=== PATIENT | female | born 1940 | race Caucasian/White ===

== ENCOUNTER 2024-06-14 12:12 | Inpatient (IN) | payer OTHER ==
[2024-06-14] MEDS ORDERED: ACETAMINOPHEN 500 MG TAB PO PRN (13:01)
--- NOTE | 2024-06-14 13:09 | P.HP ---
Certification for Inpatient Patient admitted to: Inpatient With expected LOS: >2 Midnights Patient will require the following post-hospital care: None Practitioner: I am a practitioner with admitting privileges, knowledge of patient current condition, hospital course, and medical plan of care. Services: Services provided to patient in accordance with Admission requirements found in Title 42 Section 412.3 of the Code of Federal Regulations Patient History Date of Service: 06/14/24 Primary Care Provider: Sandoval Reason for admission: chf exacerbation History of Present Illness: patient of mine who suffers from dementia, chf, htn. She has been swollen since last with tachycardia. Have doubled her Lasix from 40 to 80mg for the past 5 days. She was still swollen this morning with a HR of 108. She does have exertional dyspnea. Decision was made to admit her. She did not like that. However was reasured she can go back to sodalis on discharge. She was willing to come after that. However she can get a bit agitated at times. Have spoken with her with the son at bedside. Home Medications: Apixaban [Eliquis *] 2.5 mg PO BID 06/14/24 Aspirin [Aspirin EC] 81 mg PO DAILY 06/14/24 Carvedilol [Coreg] 3.125 mg PO BID 06/14/24 Fluticasone Propion/Salmeterol [Fluticasone-Salmeterol 250-50] 1 puff IH Q12H 06/14/24 Furosemide 80 mg PO DAILY 06/14/24 Melatonin 10 mg SL BEDTIME 06/14/24 Memantine HCl [Memantine HCl ER] 7 mg PO DAILY 06/14/24 Potassium Chloride 20 mg PO DAILY 06/14/24 Rosuvastatin Calcium 5 mg PO BEDTIME 06/14/24 Sacubitril/Valsartan [Entresto 24 mg-26 mg Tablet] 1 tab PO BID 06/14/24 cloNIDine [Clonidine] 0.1 mg TOP SEECOM 06/14/24 Review of Systems 10-point ROS is otherwise unremarkable Respiratory: SOB with Excertion Cardiovascular: Edema Physical Examination - Physical Exam General: Alert, In no apparent distress HEENT: Atraumatic, PERRLA, Mucous membr. moist/pink, EOMI, Sclerae nonicteric Neck: Supple, 2+ carotid pulse no bruit, No LAD, Without JVD or thyroid abnormality Respiratory: Clear to auscultation bilaterally, Normal air movement Cardiovascular: Regular rate/rhythm, Normal S1 S2, Edema (2+) Gastrointestinal: Normal bowel sounds, No tenderness Musculoskeletal: No tenderness Integumentary: No rashes Neurological: Normal gait, Normal speech, Normal strength at 5/5 x4 extr, Normal tone, Normal affect Lymphatics: No axilla or inguinal lymphadenopathy Assessment and Plan - Problems (Diagnosis) (1) CHF exacerbation Current Visit: Yes Status: Acute Plan: will restart entresto and lasix. Consult to Dr. Lane and check an echocardiogram. will record I's and O's This may be a bit difficult due to the dementia. A be would be convenient. however most likely would cause too much agitation Qualifiers: Heart failure type: unspecified Qualified Code(s): I50.9 - Heart failure, unspecified (2) Dementia Current Visit: Yes Status: Chronic Plan: restart mementia. Keep the patient on fall precautions. Will order PT to evaluate the patient Qualifiers: Dementia type: unspecified type Dementia severity: moderate Dementia behavioral or psychological symptom: with anxiety Qualified Code(s): F03.B4 - Unspecified dementia, moderate, with anxiety (3) Essential (primary) hypertension Current Visit: Yes Status: Chronic Plan: restart entresto and carvedilol. Will adjust as needed Discharge Plan: Home Plan to discharge in: 24 Hours - Advance Directives Does patient have a Living Will: No Does patient have a Durable POA for Healthcare: No - Code Status/Comfort Care Code Status Assessed: Yes Code Status: Do Not Attempt Resuscitat Physician Review: Patient Assessed, Agree with Above Assessment and Plan Critical Care: No Time Spent Managing Pts Care (In Minutes): 75
--- NOTE | 2024-06-14 16:43 | RAD REPORT ---
EXAM DESCRIPTION: Will Pa And Lat (2 Views)06/14/2024 3:28 pm CLINICAL HISTORY: Shortness of breath COMPARISON: None FINDINGS: Lungs are moderately to markedly hyperaerated. Aorta is tortuous/ectatic The lungs appear clear of acute infiltrate. The heart is normal size IMPRESSION: COPD without visualization of an acute abnormality
[2024-06-14] MEDS ORDERED: ENOXAPARIN 40 MG/0.4 ML SQ SCH (17:00)
[2024-06-14] MEDS: carvediloL 3.125 MG TAB PO SCH (17:39)
--- NOTE | 2024-06-14 18:20 | P.CNS ---
Date of Consult: 06/14/24 Primary Care Provider: Sandoval Chief Complaint: chf exacerbation History of Present Illness: Patient with PMH of atrial fibrillation, HTN, Heart failure unknown etiology, presented with worsening bilateral lower extremities edema and worsening SOB, denies chest pain, palpitations, no syncope, patient got advanced dementia. Allergies No Known Allergies Allergy (Verified 06/14/24 14:04) Home medications list reviewed: Yes Home Medications: Apixaban [Eliquis *] 2.5 mg PO BID 06/14/24 Aspirin [Aspirin EC] 81 mg PO DAILY 06/14/24 Fluticasone Propion/Salmeterol [Fluticasone-Salmeterol 250-50] 1 puff IH Q12H 06/14/24 RX: Carvedilol [Coreg] 3.125 mg PO BID 06/14/24 RX: Furosemide 80 mg PO DAILY 06/14/24 RX: Melatonin 10 mg SL BEDTIME 06/14/24 RX: Memantine HCl [Memantine HCl ER] 7 mg PO DAILY 06/14/24 RX: Potassium Chloride 20 mg PO DAILY 06/14/24 RX: Rosuvastatin Calcium 5 mg PO BEDTIME 06/14/24 RX: cloNIDine [Clonidine] 0.1 mg TOP SEECOM 06/14/24 Sacubitril/Valsartan [Entresto 24 mg-26 mg Tablet] 1 tab PO BID 06/14/24 - Past Medical/Surgical History Diabetic: No -: HTN -: CHF -: COPD -: Dementia - Social History Alcohol use: No CD- Drugs: No Caffeine use: No Place of Residence: Home Review of Systems 10-point ROS is otherwise unremarkable Physical Examination Temp Pulse Resp BP Pulse Ox 98.3 F 98 H 20 113/68 94 06/14/24 16:00 06/14/24 16:00 06/14/24 16:00 06/14/24 16:00 06/14/24 16:00 General: Alert, In no apparent distress HEENT: Atraumatic, PERRLA, Mucous membr. moist/pink, EOMI, Sclerae nonicteric Neck: Supple, 2+ carotid pulse no bruit, No LAD, Without JVD or thyroid abnormality Respiratory: Diminished, Crackles/rales Cardiovascular: Edema (+2 to bilateral lower extremities), Irregular heart rate/rhythm Gastrointestinal: Normal bowel sounds, No tenderness Musculoskeletal: No tenderness Integumentary: No rashes Neurological: Normal gait, Normal speech, Normal tone, Normal affect Lymphatics: No axilla or inguinal lymphadenopathy - Problems (1) Atrial fibrillation Current Visit: Yes Status: Acute Plan: Patient is in AF, HR around 100s, Continue Coreg 3.125 mg po BID (Might need to switch to Toprol XL on discharge) Continue Eliquis 2.5 mg po BID (2) CHF exacerbation Current Visit: Yes Status: Acute Plan: Patient got +2 edema to bilateral lower extremities Change Lasix to 40 mg IV TID Hold Entresto for now (resume once more euvolemic) consider adding spirnolactone after diuresis Get Echo monitor input and output and electrolytes Qualifiers: Heart failure type: unspecified Qualified Code(s): I50.9 - Heart failure, unspecified
[2024-06-14] MEDS: MELATONIN SL SCH (20:49)
[2024-06-14] MEDS: FUROSEMIDE 40 MG/4 ML VIAL IV SCH (20:49)
[2024-06-14] MEDS: APIXABAN 2.5 MG TABLET PO SCH (20:49)
[2024-06-14] MEDS: MELATONIN 1 MG SL SCH (20:49)
[2024-06-14] MEDS: PYRIDOXINE HCL SL SCH (20:49)
[2024-06-14] MEDS: ROSUVASTATIN 5 MG TAB PO SCH (20:49)
[2024-06-14] MEDS ORDERED: SACUBITRIL/VALSARTAN 24/26 MG TAB PO SCH (21:00)
[2024-06-14] MEDS ORDERED: carvediloL 3.125 MG TAB PO SCH (21:00)
[2024-06-15 06:13] LABS: Absolute Eosinophils 0.1 K/uL (0-0.5); Absolute Lymphocytes (CBC) 0.6 K/uL (0.7-4.9); Absolute Monocytes 2.5 K/uL (0.1-1.3); Absolute Neutrophil 1.9 K/uL (1.8-8.0); Basophils % 0.8 % (0-1.3); Eosinophils % 1.8 % (0-4.4); Hematocrit 22.8 % (36.0-45.0); Hemoglobin 6.6 g/dL (12.0-15.0); Lymphocytes % 12.1 % (15.3-44.8); MCH 20.6 pg (27.0-35.0); MCHC 28.9 g/dL (32.0-36.0); MCV 71.4 fL (80-100); MPV 8.7 fL (7.6-11.3); Neutrophils % 37.3 % (41.7-73.7); Nucleated Red Blood Cells % 0.2 % (0-0); Platelets 103 thou/uL (152-406); Red Cell Distribution Width 22.7 % (12.1-15.2)
[2024-06-15 06:47] LABS: Albumin/Globulin Ratio 1.1 (1.1-1.8); Anion Gap 5.1 mEq/L (5.0-15.0); Bilirubin Total 0.4 mg/dL (0.2-1.0); Globulin 2.8 g/dL (2.3-3.5); Potassium 3.1 mEq/L (3.5-5.1); Protein, Total 5.8 g/dL (6.4-8.2); Thyroid Stimulating Hormone 3.34 uIU/mL (0.358-3.740)
[2024-06-15 08:03] LABS: Band Neutrophils 4 % (0-1); Differential Total Cells Count 100; Lymphocytes 14 % (15-42); Metamyelocytes 1 % (0-0); Monocytes 39 % (0-10); Segmented Neutrophils 42 % (40-80)
[2024-06-15 08:04] LABS: Anisocytosis 2+; Blood Morphology Comment NOTED (NOT SEEN); Hypochromasia 2+; Platelet Estimate DECR
[2024-06-15] MEDS: POTASSIUM CL SA 10 MEQ TAB PO SCH (08:50)
[2024-06-15] MEDS: ASPIRIN EC 81 MG TAB PO SCH (08:50)
[2024-06-15] MEDS: MEMANTINE HCL 7 MG PO SCH (08:52)
[2024-06-15] MEDS ORDERED: FUROSEMIDE 40 MG/4 ML VIAL IV SCH (09:00)
--- NOTE | 2024-06-15 11:12 | P.PN ---
Subjective Date of Service: 06/15/24 Primary Care Provider: Sandoval Chief Complaint: chf exacerbation Subjective: No new changes, No C/O voiced, Tolerating diet, Ambulating, Improving Review of Systems 10-point ROS is otherwise unremarkable Physical Examination - Vital Signs Temperature: 98.6 F Blood Pressure: 124/57 Pulse: 110 Respirations: 18 Pulse Ox (%): 90 - Physical Exam General: Alert, In no apparent distress HEENT: Atraumatic, PERRLA, EOMI Neck: Supple, JVD not distended Respiratory: Clear to auscultation bilaterally, Normal air movement Cardiovascular: Edema, Irregular heart rate/rhythm Gastrointestinal: Normal bowel sounds, No tenderness Musculoskeletal: No tenderness Integumentary: No rashes Neurological: Normal speech, Normal tone, Normal affect Lymphatics: No axilla or inguinal lymphadenopathy - Studies Laboratory Data (last 24 hrs) 06/15/24 06/15/24 06/15/24 05:59 05:59 05:59 WBC 5.20 Hgb 6.6 L Hct 22.8 L Plt Count 103 L Sodium 141 Potassium 3.1 L BUN 17 Creatinine 0.69 Glucose 111 H Magnesium 2.0 Total Bilirubin 0.4 AST 12 L ALT 24 Alkaline Phosphatase 53 Triglycerides 57 Cholesterol 73 HDL Cholesterol 32 L Cholesterol/HDL Ratio 2.28 Medications List Reviewed: Yes Assessment And Plan - Current Problems (Diagnosis) (1) Atrial fibrillation Current Visit: Yes Status: Acute Plan: Patient is in AF, HR around 100s, start Sotalol 80 mg po BID (EKG after 3rd dose to check QTc) Continue Coreg 3.125 mg po BID (Might need to switch to Toprol XL on discharge) Continue Eliquis 2.5 mg po BID (2) CHF exacerbation Current Visit: Yes Status: Acute Plan: Patient got +2 edema to bilateral lower extremities continue Lasix to 40 mg IV TID Hold Entresto for now (resume once more euvolemic) consider adding spirnolactone after diuresis Get Echo monitor input and output and electrolytes Qualifiers: Heart failure type: unspecified Qualified Code(s): I50.9 - Heart failure, unspecified Physician Review: Patient Assessed, Agree with Above Assessment and Plan
[2024-06-15] MEDS: NA CHLORIDE 0.9% 250 ML ONE (12:33)
--- NOTE | 2024-06-15 13:06 | P.PN ---
Subjective Date of Service: 06/15/24 Primary Care Provider: Sandoval Chief Complaint: chf exacerbation Subjective: New changes (patient is anemic. No reported nausea or vomitting) Review of Systems 10-point ROS is otherwise unremarkable Physical Examination - Vital Signs Temperature: 97.9 F Blood Pressure: 90/60 Pulse: 107 Respirations: 18 Pulse Ox (%): 90 - Physical Exam General: Alert, In no apparent distress HEENT: Atraumatic, PERRLA, Other (pallor), EOMI Neck: Supple, JVD not distended Respiratory: Clear to auscultation bilaterally, Normal air movement Cardiovascular: Regular rate/rhythm, Normal S1 S2 Gastrointestinal: Normal bowel sounds, No tenderness Musculoskeletal: No tenderness Integumentary: No rashes Neurological: Normal speech, Normal tone, Normal affect Lymphatics: No axilla or inguinal lymphadenopathy - Studies Laboratory Data (last 24 hrs) 06/15/24 06/15/24 06/15/24 05:59 05:59 05:59 WBC 5.20 Hgb 6.6 L Hct 22.8 L Plt Count 103 L Sodium 141 Potassium 3.1 L BUN 17 Creatinine 0.69 Glucose 111 H Magnesium 2.0 Total Bilirubin 0.4 AST 12 L ALT 24 Alkaline Phosphatase 53 Triglycerides 57 Cholesterol 73 HDL Cholesterol 32 L Cholesterol/HDL Ratio 2.28 Medications List Reviewed: Yes Assessment And Plan - Current Problems (Diagnosis) (1) CHF exacerbation Current Visit: Yes Status: Acute Plan: will restart entresto and lasix. Consult to Dr. Lane and check an echocardiogram. will record I's and O's This may be a bit difficult due to the dementia. A be would be convenient. however most likely would cause too much agitation 06/[address] Lane notes. Will decrease lasix to bid. She most likely is third spacing due to anemia. blood transfusion will help with that Qualifiers: Heart failure type: unspecified Qualified Code(s): I50.9 - Heart failure, unspecified (2) Dementia Current Visit: Yes Status: Chronic Plan: restart mementia. Keep the patient on fall precautions. Will order PT to evaluate the patient Qualifiers: Dementia type: unspecified type Dementia severity: moderate Dementia behavioral or psychological symptom: with anxiety Qualified Code(s): F03.B4 - Unspecified dementia, moderate, with anxiety (3) Essential (primary) hypertension Current Visit: Yes Status: Chronic Plan: restart entresto and carvedilol. Will adjust as needed (4) Anemia Current Visit: Yes Status: Acute Plan: will order reticulocyte and iron studies. Will transfuse 1 unit. Will have her follow up with Dr. Yuen as an outpatient. Start the patient on protonix. Would like to stop the eliquis. However Dr. Lane is correct in using it to treat atrial fib. A stroke is worse than blood loss. We can replace blood and not brain tissue Qualifiers: Anemia type: iron deficiency Iron deficiency anemia type: chronic blood loss Qualified Code(s): D50.0 - Iron deficiency anemia secondary to blood loss (chronic) (5) Atrial fibrillation Current Visit: Yes Status: Acute Plan: normal thyroid. Will continue carvedilol Will consider increasing it. May improve if we correct the anemia Qualifiers: Atrial fibrillation type: unspecified chronic Qualified Code(s): I48.20 - Chronic atrial fibrillation, unspecified; I48.2 - Chronic atrial fibrillation Discharge Plan: Home - Code Status/Comfort Care Code Status Assessed: No Physician Review: Patient Assessed, Agree with Above Assessment and Plan Critical Care: No Time Spent Managing PTS Care (In Minutes): 35
[2024-06-15 13:35] LABS: Ferritin 7.2 ng/mL (8-252)
[2024-06-15 13:36] LABS: Percent Reticulocyte Count 2.57 % (0.4-2.05); RBC Red Blood Cell Count 3.35 M/uL (3.86-4.86)
--- NOTE | 2024-06-15 14:04 | ECHO ---
HEIGHT: 5 ft 3 in WEIGHT: 127 lb 0 oz DATE OF STUDY: 06/15/[address]: Willem Nick MD 2-DIMENSIONAL: YES M.MODE: YES DOPPLER: YES COLOR FLOW: YES TDS: PORTABLE: YES DEFINITY: BUBBLE STUDY: DIAGNOSIS: CONGESTIVE HEART FAILURE CARDIAC HISTORY: CATHERIZATION: NO SURGERY: NO PROSTHETIC VALVE: NO PACEMAKER: NO MEASUREMENTS (cm) DIASTOLIC (NORMALS) SYSTOLIC (NORMALS) IVSd 0.9 (0.6-1.2) LA Diam 3.0 (1.9-4.0) LVEF 60-65% LVIDd 4.0 (3.5-5.7) LVIDs 2.9 (2.0-3.5) %FS 27% LVPWd 1.0 (0.6-1.2) Ao Diam 2.6 (2.0-3.7) 2 DIMENSIONAL ASSESSMENT: RIGHT ATRIUM: ENLARGED LEFT ATRIUM: MODERATELY DILATED RIGHT VENTRICLE: NORMAL LEFT VENTRICLE: NORMAL TRICUSPID VALVE: MILD TRICUSPID REGURGITATION MITRAL VALVE: MILD MITRAL REGURGITATION PULMONIC VALVE: NORMAL AORTIC VALVE: MILD AORTIC REGURGITATION PERICARDIAL EFFUSION: NONE AORTIC ROOT: NORMAL LEFT VENTRICULAR WALL MOTION: NORMAL DOPPLER/COLOR FLOW: DIASTOLIC DYSFUNCTION COMMENTS: 1. NORMAL LEFT VENTRICULAR SYSTOLIC FUNCTION, EJECTION FRACTION 60-65%, NORMAL WALL MOTION 2. DIASTOLIC DYSFUNCTION 3. SEVERELY ENLARGED LEFT AND RIGHT ATRIUM 4. MILDLY ELEVATED FILLING PRESSURE (RIGHT ATRIUM 5-10 mmHg) 5. MODERATE PULMONARY HYPERTENSION (RIGHT VENTRICULAR SYSTOLIC PRESSURE 50-55 mmHg) 6. MILD AORTIC REGURGITATION/ MILD MITRAL REGURGITATION TECHNOLOGIST: CARMINE WASHINGTON
[2024-06-15] MEDS: MORPHINE 2 MG/ML SYR IM PRN (15:20)
[2024-06-15] MEDS: FUROSEMIDE 40 MG/4 ML VIAL IV SCH (16:17)
[2024-06-15] MEDS: HYDROMORPHONE HCL 0.5 MG/0.5 ML INJ IV PRN (16:46)
[2024-06-15] MEDS ORDERED: ENOXAPARIN 40 MG/0.4 ML SQ SCH (17:00)
[2024-06-15 17:26] LABS: Hematocrit 27.9 % (36.0-45.0); Hemoglobin 8.5 g/dL (12.0-15.0)
[2024-06-15 17:34] VITALS: BMI 21.3
[2024-06-15] MEDS: ONDANSETRON 4 MG/2 ML VIAL IV PRN (20:55)
[2024-06-15] MEDS: APIXABAN 2.5 MG TABLET PO SCH (22:27)
[2024-06-16 07:07] LABS: Absolute Lymphocytes (CBC) 0.6 K/uL (0.7-4.9); Absolute Monocytes 2.2 K/uL (0.1-1.3); Absolute Neutrophil 2.8 K/uL (1.8-8.0); Basophils % 0.5 % (0-1.3); Eosinophils % 0.5 % (0-4.4); Hematocrit 26.2 % (36.0-45.0); Hemoglobin 7.9 g/dL (12.0-15.0); Lymphocytes % 11.2 % (15.3-44.8); MCHC 30.1 g/dL (32.0-36.0); MCV 72.9 fL (80-100); MPV 8.6 fL (7.6-11.3); Monocytes % 38.3 % (3.3-12.3); Neutrophils % 49.5 % (41.7-73.7); Nucleated Red Blood Cells % 0.3 % (0-0); Platelets 86 thou/uL (152-406); RBC Red Blood Cell Count 3.59 M/uL (3.86-4.86); Red Cell Distribution Width 23.5 % (12.1-15.2)
[2024-06-16 07:29] LABS: Albumin/Globulin Ratio 1.1 (1.1-1.8); Anion Gap 4.3 mEq/L (5.0-15.0); Bilirubin Total 0.6 mg/dL (0.2-1.0); Globulin 2.7 g/dL (2.3-3.5); Potassium 3.3 mEq/L (3.5-5.1); Protein, Total 5.7 g/dL (6.4-8.2)
[2024-06-16 08:08] LABS: Differential Total Cells Count 100; Lymphocytes 20 % (15-42); Monocytes 26 % (0-10); Platelet Estimate DECR; Platelets, Giant PRESENT; Segmented Neutrophils 54 % (40-80)
[2024-06-16 08:09] LABS: Anisocytosis 2+; Blood Morphology Comment NOTED (NOT SEEN)
[2024-06-16] MEDS: FERROUS GLUCONATE 324 MG TAB PO SCH (08:32)
[2024-06-16 11:07] VITALS: BP 109/70; TEMP 99.3
[2024-06-16 12:05] VITALS: O2SAT 95
--- NOTE | 2024-06-16 14:11 | P.DS ---
Admission Date: 06/14/24 Discharge Date: 06/16/24 Primary Care Provider: Sandoval Disposition: ROUTINE DISCHARGE Discharge Condition: GOOD Reason for Admission: chf exacerbation - Problems (1) CHF exacerbation Current Visit: Yes Status: Acute Qualifiers: Heart failure type: unspecified Qualified Code(s): I50.9 - Heart failure, unspecified (2) Dementia Current Visit: Yes Status: Chronic Qualifiers: Dementia type: unspecified type Dementia severity: moderate Dementia behavioral or psychological symptom: with anxiety Qualified Code(s): F03.B4 - Unspecified dementia, moderate, with anxiety (3) Essential (primary) hypertension Current Visit: Yes Status: Chronic (4) Anemia Current Visit: Yes Status: Acute Qualifiers: Anemia type: iron deficiency Iron deficiency anemia type: chronic blood loss Qualified Code(s): D50.0 - Iron deficiency anemia secondary to blood loss (chronic) (5) Atrial fibrillation Current Visit: Yes Status: Acute Qualifiers: Atrial fibrillation type: unspecified chronic Qualified Code(s): I48.20 - Chronic atrial fibrillation, unspecified; I48.2 - Chronic atrial fibrillation Brief History of Present Illness: patient of [employer] who suffers from dementia, chf, htn. She has been swollen since last with tachycardia. Have doubled her Lasix from 40 to 80mg for the past 5 days. She was still swollen this morning with a HR of 108. She does have exertional dyspnea. Decision was made to admit her. She did not like that. However was reasured she can go back to sodalis on discharge. She was willing to come after that. However she can get a bit agitated at times. Have spoken with her with the son at bedside. Hospital Course: Patient was admitted for chf exacerbation. she failed outpatient therapy of doubling her lasix to 80mg. She was found to be anemic with a hb of 6.6. She was transfused 1 unit prbc. The hb stayed stable. She was seen by Dr Lane. Echo showed diastolic heart failure with pulmonary htn. She also had potassium. Was started on potassium replacement. She was also in atrial fib. Will discharge her on protonix, ferrous sulfate, eliquis for stroke prevention. Will also start her on potassium chloride 20meq po. Discussed an outpatient follow up with Dr. Yuen. However the patients son refuses. States that he feels that she would not survive an EGD. Feels she is stage 4 dementia. Though this is not quite true, it is his right to refuse treatment Vital Signs/Physical Exam: Temp Pulse Resp BP Pulse Ox 99.3 F 112 H 20 109/70 94 06/16/24 08:00 06/16/24 08:00 06/16/24 08:00 06/16/24 08:00 06/16/24 08:00 General: Alert, In no apparent distress HEENT: Atraumatic, PERRLA, EOMI Neck: Supple, JVD not distended Respiratory: Clear to auscultation bilaterally, Normal air movement Cardiovascular: Regular rate/rhythm, Normal S1 S2 Gastrointestinal: Normal bowel sounds, No tenderness Musculoskeletal: No tenderness Integumentary: No rashes Neurological: Normal speech, Normal tone, Normal affect Lymphatics: No axilla or inguinal lymphadenopathy Laboratory Data at Discharge: WBC 5.70 thou/uL (4.3-10.9) 06/16/24 06:49 Hgb 7.9 g/dL (12.0-15.0) L 06/16/24 06:49 Hct 27.6 % (36.0-45.0) L 06/16/24 12:05 Plt Count 86 thou/uL (152-406) L 06/16/24 06:49 Sodium 138 mEq/L (136-145) 06/16/24 06:49 Potassium 3.3 mEq/L (3.5-5.1) L 06/16/24 06:49 BUN 25 mg/dL (7-18) H 06/16/24 06:49 Creatinine 1.10 mg/dL (0.55-1.02) H 06/16/24 06:49 Glucose 98 mg/dL (74-106) 06/16/24 06:49 Magnesium 2.0 mg/dL (1.6-2.4) 06/15/24 05:59 Total Bilirubin 0.6 mg/dL (0.2-1.0) 06/16/24 06:49 AST 28 U/L (15-37) 06/16/24 06:49 ALT 30 U/L (13-56) 06/16/24 06:49 Alkaline Phosphatase 52 U/L (45-117) 06/16/24 06:49 Triglycerides 57 mg/dL (<150) 06/15/24 05:59 Cholesterol 73 mg/dL (<200) 06/15/24 05:59 HDL Cholesterol 32 mg/dL (40-60) L 06/15/24 05:59 Cholesterol/HDL Ratio 2.28 06/15/24 05:59 Home Medications: Apixaban [Eliquis *] 2.5 mg PO BID 06/14/24 Aspirin [Aspirin EC] 81 mg PO DAILY 06/14/24 Carvedilol [Coreg] 3.125 mg PO BID 06/14/24 Fluticasone Propion/Salmeterol [Fluticasone-Salmeterol 250-50] 1 puff IH Q12H 06/14/24 Furosemide 80 mg PO DAILY 06/14/24 Melatonin 10 mg SL BEDTIME 06/14/24 Memantine HCl [Memantine HCl ER] 7 mg PO DAILY 06/14/24 Potassium Chloride 20 mg PO DAILY 06/14/24 Rosuvastatin Calcium 5 mg PO BEDTIME 06/14/24 Sacubitril/Valsartan [Entresto 24 mg-26 mg Tablet] 1 tab PO BID 06/14/24 cloNIDine [Clonidine] 0.1 mg TOP SEECOM 06/14/24 Ferrous Gluconate 324 mg PO DAILY 90 Days #90 tab 06/16/24 Pantoprazole Sodium [Protonix] 40 mg PO DAILY 90 Days #90 tab 06/16/24 Potassium Chloride 20 meq PO DAILY 90 Days #90 tab 06/16/24 New Medications: Ferrous Gluconate 324 mg PO DAILY 90 Days #90 tab Potassium Chloride 20 meq PO DAILY 90 Days #90 tab Pantoprazole Sodium [Protonix] 40 mg PO DAILY 90 Days #90 tab Diet: Regular Activity: Ad dino Followup: Willem Nick MD [Primary Care Provider] - Physician Review: Patient Assessed, Agree with Above Assessment and Plan Time spent managing pt's care (in minutes): 45
== END 2024-06-16 14:44 | disposition home or self-care (01) | DRG 291 ==
LOC: 2ND 12:12
PROVIDERS: ADMIT Internal Medicine; ATTEND Internal Medicine
PROC: 30233N1 Transfusion of Nonautologous Red Blood Cells into Peripheral Vein, Percutaneous Approach (ICD-10-PCS; principal; 2024-06-15)
DX: I11.0 Hypertensive heart disease with heart failure (principal); I50.33 Acute on chronic diastolic (congestive) heart failure; F03.B11 Unspecified dementia, moderate, with agitation; F03.B4 Unspecified dementia, moderate, with anxiety; I48.20 Chronic atrial fibrillation, unspecified; I27.20 Pulmonary hypertension, unspecified; J44.9 Chronic obstructive pulmonary disease, unspecified; D50.0 Iron deficiency anemia secondary to blood loss (chronic); Z79.82 Long term (current) use of aspirin; Z79.01 Long term (current) use of anticoagulants; Z79.899 Other long term (current) drug therapy
CPT/HCPCS: 36415; 36430; 71046; 80053; 80061; 82728; 82947; 83540; 83735; 84443; 84466; 85014; 85018; 85025; 85044; 86850; 86900; 86901; 86920; 93306; J1170; J1940; J2270; J2405; J7050; P9016

== ENCOUNTER 2024-07-04 01:37 | Emergency (ER) | payer OTHER ==
[2024-07-04 02:54] LABS: Absolute Eosinophils 0.2 K/uL (0-0.5); Absolute Lymphocytes (CBC) 0.6 K/uL (0.7-4.9); Absolute Monocytes 2.7 K/uL (0.1-1.3); Absolute Neutrophil 3.2 K/uL (1.8-8.0); Basophils % 0.5 % (0-1.3); Eosinophils % 3.1 % (0-4.4); Hemoglobin 8.8 g/dL (12.0-15.0); MCH 23.8 pg (27.0-35.0); MCHC 29.3 g/dL (32.0-36.0); MCV 81.2 fL (80-100); MPV 8.6 fL (7.6-11.3); Monocytes % 39.4 % (3.3-12.3); Nucleated Red Blood Cells % 0.2 % (0-0); Platelets 299 thou/uL (152-406); Red Cell Distribution Width 31.2 % (12.1-15.2)
[2024-07-04 03:17] LABS: Albumin 3.1 g/dL (3.4-5.0); Anion Gap 3.3 mEq/L (5.0-15.0); Bilirubin Direct 0.2 mg/dL (0-0.2); Bilirubin Indirect, Calculated 0.2 mg/dL (0.2-0.8); Bilirubin Total 0.4 mg/dL (0.2-1.0); Globulin 3.1 g/dL (2.3-3.5); Magnesium 2.3 mg/dL (1.6-2.4); Potassium 4.3 mEq/L (3.5-5.1); Protein, Total 6.2 g/dL (6.4-8.2); Troponin High Sensitivity 11.9 pg/mL (<58.9)
[2024-07-04 03:39] LABS: Band Neutrophils 13 % (0-1); Differential Total Cells Count 100; Eosinophils 5 % (0-3); Lymphocytes 12 % (15-42); Monocytes 19 % (0-10); Segmented Neutrophils 50 % (40-80)
[2024-07-04 03:40] LABS: Anisocytosis 2+; Blood Morphology Comment NOTED (NOT SEEN); Platelet Estimate ADEQ
[2024-07-04 03:41] LABS: Hypochromasia 1+; Microcytosis 2+
--- NOTE | 2024-07-04 03:50 | ER ---
Nurse's Notes [facility] Name: Odalys Macario Age: 83 yrs Sex: Female : 1940 Arrival Date: 07/04/2024 Time: 01:37 Bed 2 Private MD: Diagnosis: Mechanical fall;Right hip pain Presentation: 07/04 01:44 Chief complaint: Patient states: fall from wheelchair to ground. pain to right hip. lg3 denies LOC. Pain 05/13. Coronavirus screen: Client denies travel out of the [place] in the last 14 days. At this time, the client does not indicate any symptoms associated with coronavirus-19. Ebola Screen: No symptoms or risks identified at this time. Initial Sepsis Screen: Does the patient meet any 2 criteria? No. Patient's initial sepsis screen is negative. Does the patient have a suspected source of infection? No. Patient's initial sepsis screen is negative. Risk Assessment: Do you want to hurt yourself or someone else? Patient reports no desire to harm self or others. Onset of symptoms was July 04, 2024. 01:44 Method Of Arrival: EMS: [facility] lg3 01:44 Acuity: CARISSA 3 lg3 Triage Assessment: 01:46 General: Appears in no apparent distress. uncomfortable, Behavior is calm, cooperative. lg3 Pain: Complains of pain in right hip Pain does not radiate. Pain currently is 8 out of 10 on a pain scale. EENT: No deficits noted. No signs and/or symptoms were reported regarding the EENT system. Neuro: No deficits noted. Small Agitation-Sedation Scale (RASS): 0 - Alert and Calm Level of Consciousness is awake, alert, obeys commands, Oriented to person, place, time, situation. Cardiovascular: No deficits noted. Denies chest pain, shortness of breath, Capillary refill is > 3 seconds is sluggish Clubbing of nail beds is absent JVD is absent Patient's skin is warm and dry. Respiratory: No deficits noted. Airway is patent Respiratory effort is even, unlabored, Respiratory pattern is regular, symmetrical. GI: No deficits noted. No signs and/or symptoms were reported involving the gastrointestinal system. : No deficits noted. No signs and/or symptoms were reported regarding the genitourinary system. Derm: No deficits noted. Skin is intact, is thin, Skin is dry, Skin is normal, Skin temperature is warm. Musculoskeletal: Circulation, motion, and sensation intact. Range of motion: limited in right hip Reports pain in right hip. Historical: - Allergies: 01:46 No Known Allergies; lg3 - Home Meds: 01:46 aspirin 81 mg Oral capsule 1 cap daily [Active]; carvedilol 3.125 mg oral tablet 1 tab lg3 2 times per day [Active]; clonidine HCl 0.1 mg Oral tablet 1 tab once [Active]; Eliquis 2.5 mg oral tablet 1 tab 2 times per day [Active]; Entresto 24-26 mg oral tablet 1 tab 2 times per day [Active]; FeroSul 325 mg (65 mg iron) oral tablet 1 tab daily [Active]; fluticasone propion-salmeterol 250-50 mcg/dose inhalation Blister, With Inhalation Device 2 times per day [Active]; furosemide 40 mg Oral tablet 1 tab daily [Active]; melatonin 10 mg Oral tablet once daily at bedtime [Active]; memantine 7 mg oral Capsule, Sprinkle Ext Rel 24hr Dose Pack 1 cap daily [Active]; pantoprazole 40 mg oral tablet, delayed release (enteric coated) 1 tab daily [Active]; potassium chloride 20 mEq Oral Packet 2 tab daily [Active]; rosuvastatin 5 mg oral tablet 1 tab daily [Active]; sertraline 25 mg oral tablet 1 tab daily [Active]; - PSHx: 01:46 Total abdominal hysterectomy; lg3 - Immunization history:: Adult Immunizations up to date. - Infectious Disease History:: Denies. - Social history:: Smoking status: Patient denies any tobacco usage or history of. - Family history:: not pertinent. Screenin:53 [facility] ED Fall Risk Assessment (Adult) History of falling in the last 3 months, lg3 including since admission Yes- single mechanical fall (1 pt) Confusion or Disorientation No (0 pts) Intoxicated or Sedated No (0 pts) Impaired Gait Yes (1 pt) Mobility Assist Device Used Yes (1 pt) Altered Elimination No (0 pt) Score/Fall Risk Level 3 or more points = High Risk Oriented to surroundings, Maintained a safe environment, Educated pt \T\ family on fall prevention, incl call for assistance when getting out of bed, Assessed \T\ reinforced patient's understanding of fall precautions, Provided non-skid footwear. Abuse screen: Denies threats or abuse. Denies injuries from another. Nutritional screening: No deficits noted. Tuberculosis screening: No symptoms or risk factors identified. Assessment: 01:53 General: see triage assessment. lg3 03:51 Reassessment: Patient appears in no apparent distress at this time. No changes from lg3 previously documented assessment. Patient and/or family updated on plan of care and expected duration. Pain level reassessed. Patient is alert, oriented x 3, equal unlabored respirations, skin warm/dry/pink. Vital Signs: 01:44 BP 136 / 88; Pulse 74; Resp 18 S; Temp 98.1(O); Pulse Ox 91% on 3 lpm NC; Weight 65.32 lg3 kg (M); Height 5 ft. 2 in. (R); Pain 8/10; 03:51 BP 137 / 90; Pulse 79; Resp 17 S; Pulse Ox 94% on R/A; lg3 01:44 Body Mass Index 26.34 (65.32 kg, 157.48 cm) lg3 01:44 Pain Scale: Adult lg3 ED Course: 01:44 Patient arrived in ED. vc1 01:44 Abelino Willingham MD is Attending Physician. rt 01:44 Ada Washington, BRYCE is Primary Nurse. lg3 01:46 Triage completed. lg3 01:46 Arm band placed on right wrist. lg3 01:53 Patient has correct armband on for positive identification. Placed in gown. Bed in low lg3 position. Call light in reach. Side rails up X 1. Client placed on continuous cardiac and pulse oximetry monitoring. NIBP monitoring applied. color television console monitor on. Door closed. Noise minimized. Warm blanket given. Pillow given. 01:53 Oxygen administration via nasal cannula \T\ 3L/min. lg3 02:32 Inserted saline lock: 22 gauge in left wrist, using aseptic technique. lg3 02:32 Inserted saline lock: 20 gauge in right forearm, using aseptic technique. Blood lg3 collected. 02:33 Basic Metabolic Panel Sent. lg3 02:33 CBC with Diff Sent. lg3 02:33 LFT's Sent. lg3 02:33 Magnesium Sent. lg3 02:33 NT PRO-BNP Sent. lg3 02:33 Troponin HS Sent. lg3 02:59 XRAY Chest (1 view) In Process Unspecified. EDMS 02:59 Hip Right 2 View XRAY In Process Unspecified. EDMS 03:58 No provider procedures requiring assistance completed. IV discontinued, intact, lg3 bleeding controlled, No redness/swelling at site. Pressure dressing applied. Administered Medications: No medications were administered Medication: 03:58 VIS not applicable for this client. lg3 Outcome: 03:50 Discharge ordered by MD. rt 03:58 Discharged to skilled nursing. [facility] to [facility] 03:58 Condition: stable 03:58 Discharge instructions given to patient, Instructed on discharge instructions, follow up and referral plans. Demonstrated understanding of instructions, follow-up care, 03:58 Patient left the ED. lg3 Signatures: Dispatcher [employer] Ada Su, RN RN lg3 Madison Escalera RN RN vc1 Abelino Willingham MD MD rt Corrections: (The following items were deleted from the chart) 02:18 01:44 BP 136 / 88; Pulse 74bpm; Resp 18bpm; Spontaneous; Pulse Ox 91% 3 lpm Nasal lg3 Cannula; Temp 98.1F Oral; 65.32 kg Measured; Height 5 ft. 2 in. Reported; BMI: 26.3; Pain 8/10, Adult; lg3
--- NOTE | 2024-07-04 03:50 | EDPHYS ---
Physician Documentation [facility] Name: Odalys Macario Age: 83 yrs Sex: Female : 1940 Arrival Date: 07/04/2024 Time: 01:37 Bed 2 Private MD: ED Physician Abelino Willingham HPI: 07/04 02:10 This 83 yrs old Female presents to ER via EMS with complaints of fall. rt 02:10 Patient presents to the ED with mechanical fall from wheelchair to the ground. Patient rt states that she became dizzy, lose consciousness, states that she did hit her head, states that she was on the ground for a brief period of time. Reports pain to her right hip but denies other injury, acute complaints, symptoms are moderate in severity, no other aggravating or elevating factors.. Historical: - Allergies: 01:46 No Known Allergies; lg3 - Home Meds: 01:46 aspirin 81 mg Oral capsule 1 cap daily [Active]; carvedilol 3.125 mg oral tablet 1 tab lg3 2 times per day [Active]; clonidine HCl 0.1 mg Oral tablet 1 tab once [Active]; Eliquis 2.5 mg oral tablet 1 tab 2 times per day [Active]; Entresto 24-26 mg oral tablet 1 tab 2 times per day [Active]; FeroSul 325 mg (65 mg iron) oral tablet 1 tab daily [Active]; fluticasone propion-salmeterol 250-50 mcg/dose inhalation Blister, With Inhalation Device 2 times per day [Active]; furosemide 40 mg Oral tablet 1 tab daily [Active]; melatonin 10 mg Oral tablet once daily at bedtime [Active]; memantine 7 mg oral Capsule, Sprinkle Ext Rel 24hr Dose Pack 1 cap daily [Active]; pantoprazole 40 mg oral tablet, delayed release (enteric coated) 1 tab daily [Active]; potassium chloride 20 mEq Oral Packet 2 tab daily [Active]; rosuvastatin 5 mg oral tablet 1 tab daily [Active]; sertraline 25 mg oral tablet 1 tab daily [Active]; - PSHx: 01:46 Total abdominal hysterectomy; lg3 - Immunization history:: Adult Immunizations up to date. - Infectious Disease History:: Denies. - Social history:: Smoking status: Patient denies any tobacco usage or history of. - Family history:: not pertinent. ROS: 02:10 Constitutional: Negative for fever, chills, and weight loss, Cardiovascular: Negative rt for chest pain, palpitations, and edema, Respiratory: Negative for shortness of breath, cough, wheezing, and pleuritic chest pain, Abdomen/GI: Negative for abdominal pain, nausea, vomiting, diarrhea, and constipation, Skin: Negative for injury, rash, and discoloration, 02:10 MS/extremity: Positive for pain, Negative for deformity, Exam: 02:10 Constitutional: This is a well developed, well nourished patient who is awake, alert, rt and in no acute distress. Head/Face: Normocephalic, atraumatic. Chest/axilla: Normal chest wall appearance and motion. Nontender with no deformity. No lesions are appreciated. Cardiovascular: Regular rate and rhythm with a normal S1 and S2. No gallops, murmurs, or rubs. Normal PMI, no JVD. No pulse deficits. Respiratory: Lungs have equal breath sounds bilaterally, clear to auscultation and percussion. No rales, rhonchi or wheezes noted. No increased work of breathing, no retractions or nasal flaring. Abdomen/GI: Soft, non-tender, with normal bowel sounds. No distension or tympany. No guarding or rebound. No evidence of tenderness throughout. Skin: Warm, dry with normal turgor. Normal color with no rashes, no lesions, and no evidence of cellulitis. 02:10 ECG was reviewed by the Attending Physician. 02:10 Musculoskeletal/extremity: Mild tenderness laterally over right hip, no deformities noted, no tenderness overlying the proximal femur. Vital Signs: 01:44 BP 136 / 88; Pulse 74; Resp 18 S; Temp 98.1(O); Pulse Ox 91% on 3 lpm NC; Weight 65.32 lg3 kg (M); Height 5 ft. 2 in. (R); Pain 8/10; 03:51 BP 137 / 90; Pulse 79; Resp 17 S; Pulse Ox 94% on R/A; lg3 01:44 Body Mass Index 26.34 (65.32 kg, 157.48 cm) lg3 01:44 Pain Scale: Adult lg3 MDM: 01:44 Patient medically screened. rt 04:14 Differential Diagnosis Fall, contusion, fracture. Data reviewed: vital signs, nurses rt notes, lab test result(s). Consideration of Admission/Observation Escalation of care including admission/observation considered. Patient without pulmonary edema, chronic CHF, no fractures. States that she feels much better in the emergency department, wishes to go home. Patient to follow-up as an outpatient.. Independent interpretation of the following test(s) in the Emergency Department X-Ray: My interpretation is No hip fracture, pulmonary edema seen on interpretation of x-ray images. Test considered but Not performed: CT: Denies head trauma, CT scan of the head is not indicated. Care significantly affected by the following chronic conditions: Congestive Heart Failure. Counseling: I had a detailed discussion with the patient and/or guardian regarding the historical points, exam findings, and any diagnostic results supporting the discharge/admit diagnosis, lab results, radiology results, the need for outpatient follow up, to return to the emergency department if symptoms worsen or persist or if there are any questions or concerns that arise at home. Response to treatment: the patient's symptoms have markedly improved after treatment. 07/04 01:48 Order name: Basic Metabolic Panel; Complete Time: 03:41 rt 07/04 01:48 Order name: CBC with Diff; Complete Time: 03:41 rt 07/04 01:48 Order name: LFT's; Complete Time: 03:41 rt 07/04 01:48 Order name: Magnesium; Complete Time: 03:41 rt 07/04 01:48 Order name: NT PRO-BNP; Complete Time: 03:41 rt 07/04 01:48 Order name: Troponin HS; Complete Time: 03:41 rt 07/04 03:00 Order name: Manual Differential; Complete Time: 03:41 EDMS 07/04 01:48 Order name: XRAY Chest (1 view) rt 07/04 01:48 Order name: Hip Right 2 View XRAY rt 07/04 01:48 Order name: Cardiac monitoring; Complete Time: 02:33 rt 07/04 01:48 Order name: EKG - Nurse/Tech; Complete Time: 02:33 rt 07/04 01:48 Order name: IV Saline Lock; Complete Time: 02:33 rt 07/04 01:48 Order name: Labs collected and sent; Complete Time: 02:33 rt 07/04 01:48 Order name: O2 Per Protocol; Complete Time: 02:33 rt 07/04 01:48 Order name: O2 Sat Monitoring; Complete Time: :33 rt EC:10 Rate is 107 beats/min. Rhythm is irregularly irregular, A fib with Occasional PVCs. QRS rt [place] is Normal. QRS interval is normal. QT interval is normal. No Q waves. No ST changes noted. Administered Medications: No medications were administered Disposition Summary: 07/04/24 03:50 Discharge Ordered Notes: Location: Home rt Problem: new rt Symptoms: have improved rt Condition: Stable rt Diagnosis - Mechanical fall rt - Right hip pain rt Followup: rt - With: Private Physician - When: 2 - 3 days - Reason: Discharge Instructions: - Discharge Summary Sheet rt - Fall Prevention in the Home, Adult rt Forms: - Medication Reconciliation Form rt - Antibiotic Education rt - Prescription Opioid Use rt - Patient Portal Instructions rt - Leadership Thank You Letter rt Signatures: Dispatcher [employer] EDAda Burrell RN RN lg3 Abelino Willingham MD MD rt Corrections: (The following items were deleted from the chart) 01:49 01:49 Chest Single View+RAD.RAD.[email or web address] ordered. EDMS EDMS 01:49 01:49 Hip Right 2 View+RAD.[email or web address].[email or web address] ordered. EDMS EDMS
[2024-07-04 04:08] VITALS: TEMP 98.1
[2024-07-04 04:15] VITALS: BP 137/90; O2SAT 94
--- NOTE | 2024-07-04 05:44 | RAD REPORT ---
EXAM: XR Chest, 1 View CLINICAL HISTORY: The patient is 83 years old and is Female; Fall. TECHNIQUE: Single view of the chest. COMPARISON: No relevant prior studies available. FINDINGS: Lungs: No pulmonary vascular congestion or consolidation. Pleural space: Unremarkable. No pneumothorax. Heart: The cardiac silhouette is enlarged versus artifact of AP technique. Mediastinum: Unremarkable. Bones/joints: Scoliosis. No acute rib fracture visualized. Upper abdomen: No free air in the visualized upper abdomen. IMPRESSION: No acute cardiopulmonary process identified. Electronically signed by: Winifred Bowers MD 07/04/2024 05:13 AM CDT RP ND Due to temporary technical issues with the PACS/MaxTraffic reporting system, reports are being maritza d by the in-house radiologist without review as a courtesy to ensure prompt reporting the interpreting radiologist is fully responsible for the content of the report. Transcribed Date/Time: 07/04/2024 5:43 AM
--- NOTE | 2024-07-04 05:44 | RAD REPORT ---
PROCEDURE: XR Right Hip With Pelvis When Performed, 1 View CLINICAL INDICATION: The patient is 83 years old and is Female; PAIN Bed Name: 2 TECHNIQUE: Frontal view of the right hip with pelvis when performed. COMPARISON: No relevant prior studies available. FINDINGS: BONES/JOINTS: Degenerative changes of the right hip and visualized left hip. No acute fracture. No subluxation or dislocation. No periosteal reaction. No suspicious lytic or blastic bone lesion. SOFT TISSUES: Grossly unremarkable. VASCULATURE: Vascular calcifications. IMPRESSION: 1. No acute findings in the right hip. 2. Degenerative changes of the right hip and visualized left hip. No Electronically signed by: Emile Thornton MD 07/04/2024 05:07 AM CDT RP Due to temporary technical issues with the PACS/[employer] reporting system, reports are being maritza d by the in-house radiologist without review as a courtesy to ensure prompt reporting the interpreting radiologist is fully responsible for the content of the report. Transcribed Date/Time: 07/04/2024 5:44 AM
--- NOTE | 2024-07-05 13:01 | EKG ---
Test Date: 2024-07-04 Test Time: 01:47:53 Dryland Farmer: ROSE MEASUREMENT RESULTS: Intervals: Rate: 107 PA: QRSD: 82 QT: 314 QTc: 419 [place]: P: PA: QRS: -26 T: -1 INTERPRETIVE STATEMENTS: Atrial fibrillation with premature ventricular or aberrantly conducted complexes Abnormal ECG No previous ECG available for comparison Electronically Signed On 07-05-24 12:55:[address]
== END 2024-07-04 03:58 | disposition home or self-care (01) ==
LOC: ER 01:37
DX: M25.551 Pain in right hip (principal); W05.0XXA Fall from non-moving wheelchair, initial encounter; Z79.01 Long term (current) use of anticoagulants; Z79.82 Long term (current) use of aspirin
CPT/HCPCS: 36415; 71045; 80048; 80076; 83735; 83880; 84484; 85025; 93005; 99285

== ENCOUNTER 2024-07-19 18:44 | Inpatient (IN) | payer OTHER ==
[2024-07-19 19:26] LABS: Absolute Eosinophils 0.1 K/uL (0-0.5); Absolute Lymphocytes (CBC) 0.6 K/uL (0.7-4.9); Absolute Monocytes 2.2 K/uL (0.1-1.3); Absolute Neutrophil 3.4 K/uL (1.8-8.0); Basophils % 0.5 % (0-1.3); Eosinophils % 1.7 % (0-4.4); Hematocrit 25.2 % (36.0-45.0); Hemoglobin 7.7 g/dL (12.0-15.0); Lymphocytes % 9.1 % (15.3-44.8); MCH 26.9 pg (27.0-35.0); MCHC 30.7 g/dL (32.0-36.0); MCV 87.6 fL (80-100); MPV 8.1 fL (7.6-11.3); Monocytes % 35.2 % (3.3-12.3); Neutrophils % 53.5 % (41.7-73.7); Nucleated Red Blood Cells % 0.5 % (0-0); Platelets 117 thou/uL (152-406); RBC Red Blood Cell Count 2.87 M/uL (3.86-4.86); Red Cell Distribution Width 28.9 % (12.1-15.2)
[2024-07-19 19:30] LABS: PT Prothrombin Time 16.1 SECONDS (9.4-12.5); Protime INR 1.45
[2024-07-19] MEDS ORDERED: FUROSEMIDE 40 MG/4 ML VIAL ONE (19:30)
[2024-07-19] MEDS ORDERED: FAMOTIDINE 20 MG/2 ML VIAL IV ONE (19:30)
[2024-07-19 19:46] LABS: Albumin 2.8 g/dL (3.4-5.0); Albumin/Globulin Ratio 0.8 (1.1-1.8); Anion Gap 5.1 mEq/L (5.0-15.0); Bilirubin Direct 0.2 mg/dL (0-0.2); Bilirubin Indirect, Calculated 0.3 mg/dL (0.2-0.8); Bilirubin Total 0.5 mg/dL (0.2-1.0); Globulin 3.4 g/dL (2.3-3.5); Magnesium 2.2 mg/dL (1.6-2.4); Potassium 4.1 mEq/L (3.5-5.1); Protein, Total 6.2 g/dL (6.4-8.2); Troponin High Sensitivity 13.5 pg/mL (<58.9)
--- NOTE | 2024-07-19 20:04 | RAD REPORT ---
EXAMINATION: ONE VIEW CHEST XR CLINICAL INDICATION: DYSPNEA TECHNIQUE: Frontal chest projection is submitted. Examination is limited by patient positioning and t echnique. COMPARISON: 07/04/2024 FINDINGS: Mild bilateral pulmonary edema is suspected. The heart is moderately enlarged in size. No displaced f ractures identified. Trace bilateral pleural effusions. IMPRESSION: Moderate CHF versus volume overload pattern.
[2024-07-19 20:16] LABS: Differential Total Cells Count 100; Eosinophils 3 % (0-3); Lymphocytes 7 % (15-42); Monocytes 25 % (0-10); Nucleated Red Blood Cells 2 /100WBC; Segmented Neutrophils 65 % (40-80)
[2024-07-19 20:17] LABS: Anisocytosis 3+; Blood Morphology Comment NOTED (NOT SEEN); Hypochromasia 2+; Platelet Estimate DECR; Polychromasia 1+; Teardrop Cell 1+
--- NOTE | 2024-07-19 20:47 | EDPHYS ---
Physician Documentation [facility] Name: Odalys Macario Age: 83 yrs Sex: Female : 1940 Arrival Date: 07/19/2024 Time: 18:44 Bed 3 Private MD: ED Physician Raheel Rosas HPI: 07/19 20:36 This 83 yrs old Female presents to ER via EMS with complaints of Leg Swelling.eldon 20:36 The patient presents with decreased range of motion, pain, that is acute. The eldon complaints affect the right leg and left leg. Context: DECOMPENSATED CHF. Modifying factors: The symptoms are alleviated by elevating leg, the symptoms are aggravated by movement. Associated signs and symptoms: The patient has no apparent associated signs or symptoms. The patient has shortness of breath with light activity. Modifying factors: The symptoms are aggravated by activity, The symptoms are alleviated by remaining still. HX CHF. Associated signs and symptoms: Pertinent positives: non-productive cough, dizziness. Historical: - Allergies: 19:21 No Known Allergies; bm8 - Home Meds: 19:21 aspirin 81 mg Oral capsule 1 cap daily [Active]; carvedilol 3.125 mg Oral tablet 1 tab bm8 2 times per day [Active]; clonidine HCl 0.1 mg Oral tablet 1 tab once [Active]; Eliquis 2.5 mg Oral tablet 1 tab 2 times per day [Active]; Entresto 24-26 mg Oral tablet 1 tab 2 times per day [Active]; FeroSul 325 mg (65 mg iron) Oral tablet 1 tab daily [Active]; fluticasone propion-salmeterol 250-50 mcg/dose inhalation Blister 2 times per day [Active]; furosemide 40 mg Oral tablet 1 tab daily [Active]; melatonin 10 mg Oral tablet once daily at bedtime [Active]; memantine 7 mg Oral Capsule 1 cap daily [Active]; pantoprazole 40 mg Oral tablet 1 tab daily [Active]; potassium chloride 20 mEq Oral Packet 2 tab daily [Active]; rosuvastatin 5 mg Oral tablet 1 tab daily [Active]; sertraline 25 mg Oral tablet 1 tab daily [Active]; - PMHx: 19:21 Hypertensive disorder; Atrial fibrillation; Dementia; Hypercholesterolemia; bm8 - PSHx: 19:21 Total abdominal hysterectomy; bm8 - Immunization history:: Adult Immunizations up to date. - Infectious Disease History:: Denies. - Social history:: Smoking status: Patient denies any tobacco usage or history of. - Family history:: not pertinent. ROS: 20:36 Constitutional: Negative for fever, chills, and weight loss, Eyes: Negative for injury, eldon pain, redness, and discharge, ENT: Negative for injury, pain, and discharge, Neck: Negative for injury, pain, and swelling, Abdomen/GI: Negative for abdominal pain, nausea, vomiting, diarrhea, and constipation, Back: Negative for injury and pain, : Negative for injury, bleeding, discharge, and swelling, Skin: Negative for injury, rash, and discoloration, Neuro: Negative for headache, weakness, numbness, tingling, and seizure, Psych: Negative for depression, anxiety, suicide ideation, homicidal ideation, and hallucinations, Allergy/Immunology: Negative for hives, rash, and allergies, Endocrine: Negative for neck swelling, polydipsia, polyuria, polyphagia, and marked weight changes, Hematologic/Lymphatic: Negative for swollen nodes, abnormal bleeding, and unusual bruising, 20:36 Cardiovascular: Positive for orthopnea, palpitations, 20:36 Respiratory: Positive for cough, shortness of breath, at rest. 20:36 MS/extremity: Positive for swelling, of the right leg and left leg, Exam: 20:36 Constitutional: This is a well developed, well nourished patient who is awake, alert, eldon and in no acute distress. Head/Face: Normocephalic, atraumatic. Eyes: Pupils equal round and reactive to light, extra-ocular motions intact. Lids and lashes normal. Conjunctiva and sclera are non-icteric and not injected. Cornea within normal limits. Periorbital areas with no swelling, redness, or edema. ENT: Nares patent. No nasal discharge, no septal abnormalities noted. Tympanic membranes are normal and external auditory canals are clear. Oropharynx with no redness, swelling, or masses, exudates, or evidence of obstruction, uvula midline. Mucous membranes moist. Neck: Trachea midline, no thyromegaly or masses palpated, and no cervical lymphadenopathy. Supple, full range of motion without nuchal rigidity, or vertebral point tenderness. No Meningismus. Chest/axilla: Normal chest wall appearance and motion. Nontender with no deformity. No lesions are appreciated. Abdomen/GI: Soft, non-tender, with normal bowel sounds. No distension or tympany. No guarding or rebound. No evidence of tenderness throughout. Back: No spinal tenderness. No costovertebral tenderness. Full range of motion. Female : Normal external genitalia. Skin: Warm, dry with normal turgor. Normal color with no rashes, no lesions, and no evidence of cellulitis. MS/ Extremity: Pulses equal, no cyanosis. Neurovascular intact. Full, normal range of motion. Neuro: Awake and alert, GCS 15, oriented to person, place, time, and situation. Cranial nerves II-XII grossly intact. Motor strength 5/5 in all extremities. Sensory grossly intact. Cerebellar exam normal. Normal gait. Psych: Awake, alert, with orientation to person, place and time. Behavior, mood, and affect are within normal limits. 20:36 Cardiovascular: Rate: tachycardic, actual rate is 120 bpm, Rhythm: irregularly irregular, Heart sounds: murmur, systolic, grade 2 over 6, JVD: is noted bilaterally, to the angle of the jaw, 20:36 ECG was reviewed by the Attending Physician. 20:36 Musculoskeletal/extremity: DVT Exam: no pain, no appreciated bluish discoloration, no erythema, no increased warmth, swelling, tenderness, Vital Signs: 19:20 BP 119 / 72; Pulse 113; Resp 15; Temp 98.3; Pulse Ox 100% on 4 lpm NC; Weight 61.23 kg; bm8 Height 5 ft. 0 in. ; Pain 0/10; 20:28 BP 145 / 89; Pulse 20; Resp 18; Temp 98.3; Pulse Ox 99% on 4 lpm NC; Pain 0/10; bm8 22:00 BP 134 / 86; Pulse 86; Resp 20; Temp 97; Pulse Ox 99% on 4 lpm NC; Pain 0/10; bm8 19:20 Body Mass Index 26.37 (61.23 kg, 152.4 cm) bm8 19:20 Pain Scale: Adult bm8 20:28 Pain Scale: Adult bm8 22:00 Pain Scale: Adult bm8 Mitzi Coma Score: 19:25 Eye Response: spontaneous(4). Motor Response: obeys commands(6). Verbal Response: bm8 oriented(5). Total: 15. 20:28 Eye Response: spontaneous(4). Motor Response: obeys commands(6). Verbal Response: bm8 oriented(5). Total: 15. 20:36 Eye Response: spontaneous(4). Motor Response: obeys commands(6). Verbal Response: eldon oriented(5). Total: 15. 22:00 Eye Response: spontaneous(4). Motor Response: obeys commands(6). Verbal Response: bm8 oriented(5). Total: 15. MDM: 19:05 Medical Screening Exam initiated eldon 20:42 Differential diagnosis: Anemia CHF exacerbation, pneumonia, pulmonary edema. Antibiotic eldon administration: Not indicated. Differential Diagnosis altered mental status, sepsis, flu. Immunization status: Pneumococcal vaccine: Influenza vaccine: Data reviewed: vital signs, nurses notes, lab test result(s), EKG, radiologic studies, CT scan. Consideration of Admission/Observation Patient was admitted/placed on observation. Escalation of care including admission/observation considered. I considered the following discharge prescriptions or medication management in the emergency department Medications were administered in the Emergency Department. See MAR. Independent interpretation of the following test(s) in the Emergency Department EKG: See my EKG interpretation above. Test considered but Not performed: Ultrasound NO 2 D ECHO. 07/19 20:33 Order name: Type And Screen [facility] 07/19 19:09 Order name: Basic Metabolic Panel; Complete Time: 20:27 [facility] 07/19 19:09 Order name: CBC with Diff; Complete Time: 20:27 [facility] 07/19 19:09 Order name: LFT's; Complete Time: 20:27 [facility] 07/19 19:09 Order name: Magnesium; Complete Time: 20:27 [facility] 07/19 19:09 Order name: NT PRO-BNP; Complete Time: 20:27 [facility] 07/19 19:09 Order name: PT-INR; Complete Time: 20:27 [facility] 07/19 19:09 Order name: Troponin HS; Complete Time: 20:27 [facility] 07/19 19:09 Order name: Lipase; Complete Time: 20:27 [facility] 07/19 19:09 Order name: Urinalysis w/ reflexes [facility] 07/19 19:33 Order name: Manual Differential; Complete Time: 20:27 EDMS 07/19 20:37 Order name: Packed RBC Leukored EDMA 07/19 19:09 Order name: XRAY Chest (1 view); Complete Time: 20:27 [facility] 07/19 19:09 Order name: EKG; Complete Time: 19: [facility] 07/19 20:53 Order name: CONS Physician Consult EDMA 07/19 19:09 Order name: Cardiac monitoring; Complete Time: :27 [facility] 07/19 19:09 Order name: EKG - Nurse/Tech; Complete Time: : [facility] 07/19 19:09 Order name: IV Saline Lock; Complete Time: : [facility] 07/19 19:09 Order name: Labs collected and sent; Complete Time: : [facility] 07/19 19:09 Order name: O2 Per Protocol; Complete Time: : [facility] 07/19 19:09 Order name: O2 Sat Monitoring; Complete Time: : [facility] EC:36 Rate is 120 beats/min. Rhythm is irregularly irregular. QRS [place] is Normal. NC interval eldon is normal. QRS interval is normal. QT interval is normal. No Q waves. T waves are Normal. No ST changes noted. Clinical impression: Atrial Fibrillation. Interpreted by me. Reviewed by me. Administered Medications: 19:34 Drug: Famotidine IVP 20 mg IVP once; dilute with 10 mL 0.9% NaCl; give over 2 minutes bm8 Route: IVP; Site: right antecubital; 21:24 Follow up: Response: No adverse reaction bm8 19:34 Drug: Furosemide IVP 40 mg IVP once; give over 2 minutes Route: IVP; Site: right bm8 antecubital; 21:24 Follow up: Response: No adverse reaction bm8 20:54 Drug: Coreg PO 6.25 mg PO once; administer with food Route: PO; bm8 21:24 Follow up: Response: No adverse reaction bm8 20:54 Drug: Digoxin IVP 0.5 mg IVP once Route: IVP; Site: right antecubital; bm8 21:24 Follow up: Response: No adverse reaction bm8 Disposition Summary: 07/19/24 20:46 Hospitalization Ordered Notes: Hospitalization Status: Inpatient Admission eldon Provider: Willem Nick cha Condition: Fair eldon Problem: new eldon Symptoms: have improved eldon Bed/Room Type: Standard eldon Location: Intensive Care Unit(07/19/24 21:55) lg3 Room Assignment: 7-(07/19/24 21:55) lg3 Diagnosis - Chronic combined systolic (congestive) and diastolic (congestive) heart failure eldon - Anemia, unspecified eldon - Generalized edema eldon - Persistent atrial fibrillation - WITH RVR eldon Forms: - Medication Reconciliation Form eldon - SBAR form eldon - Leadership Thank You Letter eldon Signatures: Dispatcher [employer] EDMS Raheel Rosas MD MD cha Able, Lacie RN RN lg3 Kahlil Alvarado RN RN bm8 Corrections: (The following items were deleted from the chart) 19:09 19:09 BASIC METABOLIC PANEL+C.LAB.BRZ ordered. EDMS EDMS 19:09 19:09 CBC+H.LAB.BRZ ordered. EDMS EDMS 19:09 19:09 HEPATIC FUNCTION+C.LAB.BRZ ordered. EDMS EDMS 19:09 19:09 MAGNESIUM+C.LAB.BRZ ordered. EDMS EDMS 19:09 19:09 PROBNP+C.LAB.BRZ ordered. EDMS EDMS 19:09 19:09 PROTIME (+INR)+COAG.LAB.BRZ ordered. EDMS EDMS 19:09 19:09 Troponin High Sensitivity+C.LAB.BRZ ordered. EDMS EDMS 19:09 19:09 LIPASE+C.LAB.BRZ ordered. EDMS EDMS 19:09 19:09 Urinalysis+U.LAB.BRZ ordered. EDMS EDMS 21:22 20:46 Telemetry/MedSurg (Inpatient) eldon lg3 21:22 20:46 eldon lg3 21:24 19:09 Evans ordered. eldon bm8 21:55 21:22 BR ER HOLD lg3 lg3 21:55 21:22 ERHOLD- lg3 lg3
--- NOTE | 2024-07-19 20:47 | ER ---
[facility] Name: Odalys Macario Age: 83 yrs Sex: Female : 1940 Arrival Date: 07/19/2024 Time: 18:44 Bed 3 Private MD: Diagnosis: Chronic combined systolic (congestive) and diastolic (congestive) heart failure;Anemia, unspecified;Generalized edema;Persistent atrial fibrillation-WITH RVR Presentation: 07/19 19:09 Chief complaint: EMS states: PATRICIA lower extremity swelling X 2 weeks, has gotten worse. iw 19:10 Coronavirus screen: At this time, the client does not indicate any symptoms associated iw with coronavirus-19. Initial Sepsis Screen: Does the patient meet any 2 criteria? No. Patient's initial sepsis screen is negative. Does the patient have a suspected source of infection? No. Patient's initial sepsis screen is negative. Risk Assessment: Do you want to hurt yourself or someone else? Patient reports no desire to harm self or others. 19:10 Method Of Arrival: EMS: [facility] iw 19:10 Acuity: CARISSA 3 iw 19:11 Ebola Screen: No symptoms or risks identified at this time. Onset of symptoms was iw July 05, 2024. Triage Assessment: 19:21 General: Appears in no apparent distress. comfortable, Behavior is calm, cooperative, bm8 appropriate for age. Pain: Denies pain. EENT: No deficits noted. No signs and/or symptoms were reported regarding the EENT system. Neuro: No deficits noted. Level of Consciousness is awake, alert, obeys commands, Oriented to person, place, time, situation, Appropriate for age. Cardiovascular: Reports swelling to lower exts Denies chest pain, Heart tones S1 S2 present Capillary refill < 3 seconds in bilateral fingers Patient's skin is warm and dry. Edema is 4+ to left upper thigh, left lower thigh, left knee, left midcalf, left ankle, left foot, left toes, right upper thigh, right lower thigh, right knee, right midcalf, right ankle, right foot and right toes Rhythm is atrial fibrillation. Respiratory: Airway is patent Trachea midline Respiratory effort is even, unlabored, Respiratory pattern is regular, symmetrical, Breath sounds are diminished bilaterally. GI: No signs and/or symptoms were reported involving the gastrointestinal system. : No signs and/or symptoms were reported regarding the genitourinary system. Derm: No signs and/or symptoms reported regarding the dermatologic system. Musculoskeletal: No signs and/or symptoms reported regarding the musculoskeletal system. Historical: - Allergies: 19:21 No Known Allergies; bm8 - Home Meds: 19:21 aspirin 81 mg Oral capsule 1 cap daily [Active]; carvedilol 3.125 mg Oral tablet 1 tab bm8 2 times per day [Active]; clonidine HCl 0.1 mg Oral tablet 1 tab once [Active]; Eliquis 2.5 mg Oral tablet 1 tab 2 times per day [Active]; Entresto 24-26 mg Oral tablet 1 tab 2 times per day [Active]; FeroSul 325 mg (65 mg iron) Oral tablet 1 tab daily [Active]; fluticasone propion-salmeterol 250-50 mcg/dose inhalation Blister 2 times per day [Active]; furosemide 40 mg Oral tablet 1 tab daily [Active]; melatonin 10 mg Oral tablet once daily at bedtime [Active]; memantine 7 mg Oral Capsule 1 cap daily [Active]; pantoprazole 40 mg Oral tablet 1 tab daily [Active]; potassium chloride 20 mEq Oral Packet 2 tab daily [Active]; rosuvastatin 5 mg Oral tablet 1 tab daily [Active]; sertraline 25 mg Oral tablet 1 tab daily [Active]; - PMHx: 19:21 Hypertensive disorder; Atrial fibrillation; Dementia; Hypercholesterolemia; bm8 - PSHx: 19:21 Total abdominal hysterectomy; bm8 - Immunization history:: Adult Immunizations up to date. - Infectious Disease History:: Denies. - Social history:: Smoking status: Patient denies any tobacco usage or history of. - Family history:: not pertinent. Screenin:25 [facility] ED Fall Risk Assessment (Adult) History of falling in the last 3 months, bm8 including since admission No falls in past 3 months (0 pts) Confusion or Disorientation No (0 pts) Intoxicated or Sedated No (0 pts) Impaired Gait Yes (1 pt) Mobility Assist Device Used No (0 pt) Altered Elimination No (0 pt) Score/Fall Risk Level 0 - 2 = Low Risk Oriented to surroundings, Maintained a safe environment, Educated pt \T\ family on fall prevention, incl call for assistance when getting out of bed, Assessed \T\ reinforced patient's understanding of fall precautions, Hourly rounding (assess needs \T\ fall precautionary measures) done, Used ambulatory aids as needed (educated on \T\ assisted with), Used gait belt as appropriate. Abuse screen: Denies threats or abuse. Nutritional screening: No deficits noted. Tuberculosis screening: No symptoms or risk factors identified. Assessment: 19:25 Reassessment: see triage note. 8 20:28 Reassessment: Patient appears in no apparent distress at this time. No changes from [facility] previously documented assessment. Patient and/or family updated on plan of care and expected duration. Pain level reassessed. Patient is alert, oriented x 3, equal unlabored respirations, skin warm/dry/pink. 22:00 Reassessment: Patient appears in no apparent distress at this time. No changes from [facility] previously documented assessment. Patient and/or family updated on plan of care and expected duration. Pain level reassessed. Patient is alert, oriented x 3, equal unlabored respirations, skin warm/dry/pink. blood started Patient states feeling better. Vital Signs: 19:20 BP 119 / 72; Pulse 113; Resp 15; Temp 98.3; Pulse Ox 100% on 4 lpm NC; Weight 61.23 kg; bm8 Height 5 ft. 0 in. ; Pain 0/10; 20:28 BP 145 / 89; Pulse 20; Resp 18; Temp 98.3; Pulse Ox 99% on 4 lpm NC; Pain 0/10; bm8 22:00 BP 134 / 86; Pulse 86; Resp 20; Temp 97; Pulse Ox 99% on 4 lpm NC; Pain 0/10; bm8 19:20 Body Mass Index 26.37 (61.23 kg, 152.4 cm) 8 19:20 Pain Scale: Adult bm8 20:28 Pain Scale: Adult bm8 22:00 Pain Scale: Adult bm8 Mitzi Coma Score: 19:25 Eye Response: spontaneous(4). Motor Response: obeys commands(6). Verbal Response: bm8 oriented(5). Total: 15. 20:28 Eye Response: spontaneous(4). Motor Response: obeys commands(6). Verbal Response: bm8 oriented(5). Total: 15. 20:36 Eye Response: spontaneous(4). Motor Response: obeys commands(6). Verbal Response: eldon oriented(5). Total: 15. 22:00 Eye Response: spontaneous(4). Motor Response: obeys commands(6). Verbal Response: bm8 oriented(5). Total: 15. ED Course: 18:59 Patient arrived in ED. kd3 19:05 Raheel Rosas MD is Attending Physician. eldon 19:10 Triage completed. iw 19:20 Kahlil Alvarado, RN is Primary Nurse. bm8 19:21 Arm band placed on right wrist. bm8 19:25 Patient has correct armband on for positive identification. Placed in gown. Bed in low bm8 position. Call light in reach. Side rails up X2. Client placed on continuous cardiac and pulse oximetry monitoring. NIBP monitoring applied. wire sawyer on. Pulse ox on. NIBP on. Door closed. Noise minimized. Warm blanket given. Pillow given. Verbal reassurance given. 19:25 No provider procedures requiring assistance completed. Initial lab(s) drawn, by ED [facility] staff, sent to lab. EKG done, by ED staff, reviewed by Raheel Rosas MD. Inserted saline lock: 20 gauge in right antecubital area, using aseptic technique. Blood collected. Flushed with 10 mL NS. Oxygen administration via nasal cannula \T\ 4L/min O2 via pt is on O2 at home. Response to oxygen therapy: symptoms improved. 19:55 XRAY Chest (1 view) In Process Unspecified. EDMS 20:44 Willem Nick MD is Hospitalizing Provider. [facility] 20:57 Type And Screen Sent. km 20:57 Packed RBC Leukored Sent. km 20:57 Urinalysis w/ reflexes Sent. [facility] 22:00 Provided Education on: need for admission. bm8 22:00 Consent for blood and/or blood product transfusion explained by staff, explained by 8 physician, signed by patient. 22:00 Patient admitted, IV remains in place. bm8 Administered Medications: 19:34 Drug: Famotidine IVP 20 mg IVP once; dilute with 10 mL 0.9% NaCl; give over 2 minutes bm8 Route: IVP; Site: right antecubital; 21:24 Follow up: Response: No adverse reaction bm8 19:34 Drug: Furosemide IVP 40 mg IVP once; give over 2 minutes Route: IVP; Site: right bm8 antecubital; 21:24 Follow up: Response: No adverse reaction bm8 20:54 Drug: Coreg PO 6.25 mg PO once; administer with food Route: PO; bm8 21:24 Follow up: Response: No adverse reaction bm8 20:54 Drug: Digoxin IVP 0.5 mg IVP once Route: IVP; Site: right antecubital; bm8 21:24 Follow up: Response: No adverse reaction bm8 Medication: 19:25 VIS not applicable for this client. bm8 22:00 Blood products: PRBCs X 1 unit given. bm8 Outcome: 20:46 Decision to Hospitalize by Provider. eldon 22:00 Admitted to ICU accompanied by nurse, via stretcher, room ic u 7, with oxygen, with bm8 chart, 22:00 Condition: stable 22:00 Instructed on follow up and referral plans. the need for admit, Demonstrated understanding of instructions, follow-up care, 22:58 Patient left the ED. kd3 Signatures: Dispatcher [employer] EDRaheel Whitaker MD MD cha Williams, Irene, RN RN iw Doucette, Kyli, RN RN kd3 Dolores Johnson Brad, RN RN bm8 Corrections: (The following items were deleted from the chart) 19:27 19:25 Oxygen administration via nasal cannula \T\ 4L/min Response to oxygen therapy: bm8 symptoms improved. bm8
[2024-07-19] MEDS ORDERED: carvediloL 6.25 MG TAB ONE (20:51)
[2024-07-19] MEDS ORDERED: DIGOXIN 0.25 MG/ML AMP ONE (20:51)
[2024-07-19 21:19] LABS: Specific Gravity 1.007 (1.005-1.030); Urine Bilirubin NEGATIVE (Negative); Urine Blood Negative (Negative); Urine Clarity Clear (Clear); Urine Color Colorless (Yellow); Urine Glucose NEGATIVE (Negative); Urine Ketones NEGATIVE (Negative); Urine Microscopic Reflex YN NO UMIC; Urine Nitrite NEGATIVE (Negative); Urine Protein NEGATIVE (Negative); Urine Urobilinogen Normal (Normal)
[2024-07-19] MEDS ORDERED: NA CHLORIDE 0.9% 500 ML ONE (21:48)
[2024-07-19] MEDS ORDERED: ONDANSETRON 4 MG/2 ML VIAL IV PRN (22:44)
[2024-07-19] MEDS ORDERED: IPRATROPIUM BROM 0.5MG/2.5ML NEB PRN (22:44)
[2024-07-19] MEDS ORDERED: ALBUTEROL 2.5 MG/3 ML NEB SOL NEB PRN (22:44)
[2024-07-19] MEDS ORDERED: SODIUM CHLORIDE 0.9% 10ML INJ IV PRN (22:44)
[2024-07-19 23:29] VITALS: BMI 24.0
[2024-07-20] MEDS: APIXABAN 2.5 MG TABLET PO ONE (00:12)
[2024-07-20] MEDS: SACUBITRIL/VALSARTAN 24/26 MG TAB PO ONE (00:13)
[2024-07-20 01:57] LABS: Hematocrit 26.7 % (36.0-45.0); Hemoglobin 8.3 g/dL (12.0-15.0)
[2024-07-20] MEDS: carvediloL 3.125 MG TAB PO SCH (05:51)
[2024-07-20 06:38] LABS: Absolute Eosinophils 0.2 K/uL (0-0.5); Absolute Lymphocytes (CBC) 0.5 K/uL (0.7-4.9); Absolute Monocytes 2.5 K/uL (0.1-1.3); Absolute Neutrophil 4.3 K/uL (1.8-8.0); Basophils % 0.5 % (0-1.3); Eosinophils % 2.1 % (0-4.4); Hematocrit 27.7 % (36.0-45.0); Hemoglobin 8.6 g/dL (12.0-15.0); Lymphocytes % 6.8 % (15.3-44.8); MCH 27.2 pg (27.0-35.0); MCHC 30.9 g/dL (32.0-36.0); MPV 8.5 fL (7.6-11.3); Monocytes % 33.5 % (3.3-12.3); Neutrophils % 57.1 % (41.7-73.7); Nucleated Red Blood Cells % 0.2 % (0-0); Platelets 95 thou/uL (152-406); RBC Red Blood Cell Count 3.15 M/uL (3.86-4.86); Red Cell Distribution Width 25.8 % (12.1-15.2)
[2024-07-20 06:56] LABS: Anion Gap 6.6 mEq/L (5.0-15.0); Potassium 3.6 mEq/L (3.5-5.1)
--- NOTE | 2024-07-20 07:17 | RAD REPORT ---
EXAMINATION: ONE VIEW CHEST XR CLINICAL INDICATION: Female, 83 years old.,Chest Pain TECHNIQUE: Frontal chest projection is submitted. Examination is limited by patient positioning and t echnique. COMPARISON: 07/19/2024 FINDINGS: Mild patchy left basilar and right peripheral upper lung opacities may be slightly progressive. Mild central interstitial prominence and vascular prominence, stable. No pneumothorax. Suggestion of trace effusions, partially improved. The heart is upper limit of normal in size. IMPRESSION: Mild patchy left basilar and right upper lung opacities, may reflect pneumonitis or edema.
[2024-07-20] MEDS ORDERED: ACETAMINOPHEN 325 MG TABLET PO PRN (08:35)
--- NOTE | 2024-07-20 08:43 | P.HP ---
Certification for Inpatient Patient admitted to: Inpatient With expected LOS: >2 Midnights Patient will require the following post-hospital care: None Practitioner: I am a practitioner with admitting privileges, knowledge of patient current condition, hospital course, and medical plan of care. Services: Services provided to patient in accordance with Admission requirements found in Title 42 Section 412.3 of the Code of Federal Regulations Patient History Date of Service: 07/20/24 Primary Care Provider: Sandoval Reason for admission: CHF exacerbation History of Present Illness: Patient of mine living in [facility]. She has a history of copd, chf, dementia. She is difficult to control fluid status for the chf. She was on increased dosages of furosemide and low dose entresto. However she had worsening pedal edema and was sent to the ER. She was here last month and an echo showed diastolic dysfunction. She also had anemia at the time. She was given a unit of blood in the ER. The family does not want any egd/colonoscopy. She has improved on protonix and oral iron. She is awake and in good spirits this morning. Able to sit up feed herself. Allergies No Known Allergies Allergy (Verified 06/14/24 14:04) Home medications list reviewed: Yes Home Medications: Apixaban [Eliquis *] 2.5 mg PO BID 06/14/24 Fluticasone Propion/Salmeterol [Fluticasone-Salmeterol 250-50] 1 puff IH Q12H 06/14/24 Melatonin 10 mg SL BEDTIME 06/14/24 Memantine HCl [Memantine HCl ER] 7 mg PO DAILY 06/14/24 Potassium Chloride 20 mg PO DAILY 06/14/24 Rosuvastatin Calcium 5 mg PO BEDTIME 06/14/24 Sacubitril/Valsartan [Entresto 24 mg-26 mg Tablet] 1 tab PO BID 06/14/24 cloNIDine [Clonidine] 0.1 mg TOP SEECOM 06/14/24 Ferrous Gluconate 324 mg PO DAILY 90 Days #90 tab 06/16/24 Pantoprazole Sodium [Protonix] 40 mg PO DAILY 90 Days #90 tab 06/16/24 Potassium Chloride 20 meq PO DAILY 90 Days #90 tab 06/16/24 Acetaminophen 2 tab PO PRN PRN 07/20/24 Albuterol Inhaler [Ventolin Inhaler*] 2 puff IH PRN PRN 07/20/24 Sertraline [Zoloft*] 25 mg PO DAILY 07/20/24 Tramadol HCl [Ultram] 1 tab PO PRN PRN 07/20/24 - Past Medical/Surgical History Has patient received pneumonia vaccine in the past: No Diabetic: No -: HTN -: CHF -: COPD -: Dementia -: Right foot surgery - Social History Smoking Status: Former smoker Alcohol use: No CD- Drugs: No Caffeine use: Yes Place of Residence: [facility] Review of Systems 10-point ROS is otherwise unremarkable Cardiovascular: Edema Physical Examination - Vital Signs Temperature: 98.3 F Blood Pressure: 127/72 Pulse: 86 Respirations: 22 Pulse Ox (%): 100 - Physical Exam General: Alert, In no apparent distress HEENT: Atraumatic, PERRLA, Mucous membr. moist/pink, EOMI, Sclerae nonicteric Neck: Supple, 2+ carotid pulse no bruit, No LAD, Without JVD or thyroid abnormality Respiratory: Clear to auscultation bilaterally, Normal air movement Cardiovascular: Regular rate/rhythm, Normal S1 S2 Gastrointestinal: Normal bowel sounds, No tenderness Musculoskeletal: No tenderness Integumentary: No rashes Neurological: Normal gait, Normal speech, Normal strength at 5/5 x4 extr, Normal tone, Normal affect Lymphatics: No axilla or inguinal lymphadenopathy - Studies Laboratory Data (last 24 hrs) 07/19/24 07/19/24 07/19/24 19:20 19:20 19:20 WBC 6.40 Hgb 7.7 L Hct 25.2 L Plt Count 117 L PT 16.1 H INR 1.45 Sodium 139 Potassium 4.1 BUN 18 Creatinine 0.94 Glucose 114 H Magnesium 2.2 Total Bilirubin 0.5 AST 23 ALT 16 Alkaline Phosphatase 94 Lipase 46 Assessment and Plan - Problems (Diagnosis) (1) CHF exacerbation Current Visit: No Status: Acute Plan: continue lasix. will have her seen by Dr. Lara. We may consider increasing the entresto. Will try having a family meeting about having about possible GI work. Qualifiers: Heart failure type: diastolic Qualified Code(s): I50.33 - Acute on chronic diastolic (congestive) heart failure (2) Atrial fibrillation Current Visit: No Status: Acute Qualifiers: Atrial fibrillation type: unspecified chronic Qualified Code(s): I48.20 - Chronic atrial fibrillation, unspecified; I48.2 - Chronic atrial fibrillation (3) Anemia Current Visit: No Status: Chronic Plan: Most likely a GI bleed. She is better after the transfusion. Hopefully this will improve her volume status. Will continue monitoring her hb Qualifiers: Anemia type: iron deficiency Iron deficiency anemia type: chronic blood loss Qualified Code(s): D50.0 - Iron deficiency anemia secondary to blood loss (chronic) (4) Dementia Current Visit: No Status: Chronic Plan: stable on namenda Qualifiers: Dementia type: unspecified type Dementia severity: moderate Dementia behavioral or psychological symptom: with anxiety Qualified Code(s): F03.B4 - Unspecified dementia, moderate, with anxiety (5) Essential (primary) hypertension Current Visit: No Status: Chronic Plan: stable on entresto. Discharge Plan: Home Plan to discharge in: 48 Hours - Advance Directives Does patient have a Living Will: No Does patient have a Durable POA for Healthcare: No - Code Status/Comfort Care Code Status Assessed: No Code Status: Full Code Physician Review: Patient Assessed, Agree with Above Assessment and Plan Critical Care: No Time Spent Managing Pts Care (In Minutes): 45
[2024-07-20] MEDS: BLST W D IH SCH (08:45)
[2024-07-20] MEDS: FLUTICASONE PROPION IH SCH (08:45)
[2024-07-20] MEDS: SALMETEROL IH SCH (08:45)
[2024-07-20] MEDS ORDERED: SACUBITRIL/VALSARTAN 24/26 MG TAB PO SCH (09:00)
[2024-07-20] MEDS: MEMANTINE HCL 7 MG PO SCH (09:00)
[2024-07-20] MEDS ORDERED: APIXABAN 2.5 MG TABLET PO SCH (09:00)
[2024-07-20] MEDS: PANTOPRAZOLE 40 MG INJ IVP SCH (09:00)
[2024-07-20] MEDS: FUROSEMIDE 40 MG/4 ML VIAL IV SCH ×2 (09:00→09:56)
[2024-07-20] MEDS: POTASSIUM CL SA 10 MEQ TAB PO SCH (09:54)
[2024-07-20] MEDS: PANTOPRAZOLE 40MG TABLET PO SCH (09:55)
[2024-07-20] MEDS: SERTRALINE HCL 50 MG TAB PO SCH (09:55)
[2024-07-20] MEDS: APIXABAN 2.5 MG TABLET PO SCH (09:55)
[2024-07-20] MEDS: SACUBITRIL/VALSARTAN 24/26 MG TAB PO SCH (09:55)
--- NOTE | 2024-07-20 10:44 | P.CNS ---
Date of Consult: 07/20/24 Primary Care Provider: Sandoval Chief Complaint: CHF exacerbation History of Present Illness: Patient with PMH of Diastolic heart failure, atrial fibrillation presented with worsening SOB and bilateral lower extremities edema, she denies chest pain, no palpitations, no syncope. Allergies No Known Allergies Allergy (Verified 06/14/24 14:04) Home medications list reviewed: Yes Home Medications: Apixaban [Eliquis *] 2.5 mg PO BID 06/14/24 Fluticasone Propion/Salmeterol [Fluticasone-Salmeterol 250-50] 1 puff IH Q12H 06/14/24 Melatonin 10 mg SL BEDTIME 06/14/24 Memantine HCl [Memantine HCl ER] 7 mg PO DAILY 06/14/24 Potassium Chloride 20 mg PO DAILY 06/14/24 Rosuvastatin Calcium 5 mg PO BEDTIME 06/14/24 Sacubitril/Valsartan [Entresto 24 mg-26 mg Tablet] 1 tab PO BID 06/14/24 cloNIDine [Clonidine] 0.1 mg TOP SEECOM 06/14/24 Ferrous Gluconate 324 mg PO DAILY 90 Days #90 tab 06/16/24 Pantoprazole Sodium [Protonix] 40 mg PO DAILY 90 Days #90 tab 06/16/24 Potassium Chloride 20 meq PO DAILY 90 Days #90 tab 06/16/24 Acetaminophen 2 tab PO PRN PRN 07/20/24 Albuterol Inhaler [Ventolin Inhaler*] 2 puff IH PRN PRN 07/20/24 Sertraline [Zoloft*] 25 mg PO DAILY 07/20/24 Tramadol HCl [Ultram] 1 tab PO PRN PRN 07/20/24 - Past Medical/Surgical History Diabetic: No -: HTN -: CHF -: COPD -: Dementia -: Right foot surgery - Social History Alcohol use: No CD- Drugs: No Caffeine use: Yes Place [facility]idence: [facility] Review of Systems 10-point ROS is otherwise unremarkable Physical Examination Temp Pulse Resp BP Pulse Ox 98.3 F 94 H 22 H 115/60 100 07/20/24 08:50 07/20/24 09:56 07/20/24 08:50 07/20/24 09:56 07/20/24 08:50 General: Alert, In no apparent distress HEENT: Atraumatic, PERRLA, Mucous membr. moist/pink, EOMI, Sclerae nonicteric Neck: Supple, 2+ carotid pulse no bruit, No LAD, Without JVD or thyroid abnormality Respiratory: Clear to auscultation bilaterally, Normal air movement Cardiovascular: Edema (+2 to bilateral lower extemities), Irregular heart rate/rhythm Gastrointestinal: Normal bowel sounds, No tenderness Musculoskeletal: No tenderness Integumentary: No rashes Neurological: Normal gait, Normal speech, Normal tone, Normal affect Lymphatics: No axilla or inguinal lymphadenopathy Laboratory Data (last 24 hrs) 07/19/24 07/19/24 07/19/24 19:20 19:20 19:20 WBC 6.40 Hgb 7.7 L Hct 25.2 L Plt Count 117 L PT 16.1 H INR 1.45 Sodium 139 Potassium 4.1 BUN 18 Creatinine 0.94 Glucose 114 H Magnesium 2.2 Total Bilirubin 0.5 AST 23 ALT 16 Alkaline Phosphatase 94 Lipase 46 - Problems (1) Acute on chronic diastolic heart failure Current Visit: Yes Status: Acute Plan: Patient is NYHA III, Class B, she got +2 edema to bilateral lower extremities Increase Lasix to 40 mg IV q 6 hours continue Coreg 3.125 mg o BID continue Entresto 24/27 mg po BID Monitor input and output and electrolytes. (2) Atrial fibrillation Current Visit: No Status: Acute Plan: Continue Coreg 3.125 mg po BID Continue Eliquis 2.5 mg po BID monitor H&H Qualifiers: Atrial fibrillation type: unspecified chronic Qualified Code(s): I48.20 - Chronic atrial fibrillation, unspecified; I48.2 - Chronic atrial fibrillation (3) Essential (primary) hypertension Current Visit: No Status: Chronic Plan: Continue medications as above.
[2024-07-20] MEDS: PNEUMOCOCCAL VACCINE 0.5 ML IMVAC ONE (18:00)
[2024-07-20] MEDS: MORPHINE 2 MG/ML SYR IV PRN (19:58)
[2024-07-20] MEDS: MELATONIN 5 MG TABLET PO SCH (20:27)
[2024-07-20] MEDS: ROSUVASTATIN 5 MG TAB PO SCH (20:27)
[2024-07-20] MEDS ORDERED: HOME MED 1 EA UNK (Melatonin [Melatonin] 10 MG Tab.Subl) SL SCH (21:00)
--- NOTE | 2024-07-21 09:00 | P.PN ---
Subjective Date of Service: 07/21/24 Primary Care Provider: Sandoval Chief Complaint: CHF exacerbation Subjective: Improving (diuresised 2.2 lts) Review of Systems 10-point ROS is otherwise unremarkable Physical Examination - Vital Signs Temperature: 98.1 F Blood Pressure: 134/75 Pulse: 102 Respirations: 16 Pulse Ox (%): 96 - Physical Exam General: Alert, In no apparent distress HEENT: Atraumatic, PERRLA, EOMI Neck: Supple, JVD not distended Respiratory: Clear to auscultation bilaterally, Normal air movement Cardiovascular: Regular rate/rhythm, Normal S1 S2 Gastrointestinal: Normal bowel sounds, No tenderness Musculoskeletal: No tenderness Integumentary: No rashes Neurological: Normal speech, Normal tone, Normal affect Lymphatics: No axilla or inguinal lymphadenopathy Assessment And Plan - Current Problems (Diagnosis) (1) CHF exacerbation Current Visit: No Status: Acute Plan: continue lasix. will have her seen by Dr. Lara. We may consider increasing the entresto. Will try having a family meeting about having about possible GI work. 10.18 diuresising well. Will continue to monitor her. Possible discharge tomorrow. Qualifiers: Heart failure type: diastolic Qualified Code(s): I50.33 - Acute on chronic diastolic (congestive) heart failure (2) Atrial fibrillation Current Visit: No Status: Acute Qualifiers: Atrial fibrillation type: unspecified chronic Qualified Code(s): I48.20 - Chronic atrial fibrillation, unspecified; I48.2 - Chronic atrial fibrillation (3) Anemia Current Visit: No Status: Chronic Plan: Most likely a GI bleed. She is better after the transfusion. Hopefully this will improve her volume status. Will continue monitoring her hb Qualifiers: Anemia type: iron deficiency Iron deficiency anemia type: chronic blood loss Qualified Code(s): D50.0 - Iron deficiency anemia secondary to blood loss (chronic) (4) Dementia Current Visit: No Status: Chronic Plan: stable on namenda Qualifiers: Dementia type: unspecified type Dementia severity: moderate Dementia behavioral or psychological symptom: with anxiety Qualified Code(s): F03.B4 - Unspecified dementia, moderate, with anxiety (5) Essential (primary) hypertension Current Visit: No Status: Chronic Plan: stable on entresto. Discharge Plan: Home Plan to discharge in: 24 Hours - Code Status/Comfort Care Code Status Assessed: No Physician Review: Patient Assessed, Agree with Above Assessment and Plan Critical Care: No Time Spent Managing PTS Care (In Minutes): 20
[2024-07-21] MEDS: ALBUTEROL INHALER 200 PUFF/6.7 GM IH PRN (09:34)
[2024-07-21] MEDS: FERROUS GLUCONATE 324 MG TAB PO SCH (09:35)
[2024-07-21] MEDS: ACETAMINOPHEN 325 MG TABLET PO PRN (20:58)
[2024-07-22 07:05] LABS: Absolute Eosinophils 0.1 K/uL (0-0.5); Absolute Lymphocytes (CBC) 0.7 K/uL (0.7-4.9); Absolute Monocytes 2.2 K/uL (0.1-1.3); Basophils % 0.7 % (0-1.3); Eosinophils % 2.2 % (0-4.4); Hematocrit 26.7 % (36.0-45.0); Hemoglobin 8.2 g/dL (12.0-15.0); Lymphocytes % 10.9 % (15.3-44.8); MCH 27.3 pg (27.0-35.0); MCHC 30.9 g/dL (32.0-36.0); MCV 88.4 fL (80-100); MPV 8.5 fL (7.6-11.3); Monocytes % 36.4 % (3.3-12.3); Neutrophils % 49.8 % (41.7-73.7); Nucleated Red Blood Cells % 0.1 % (0-0); Platelets 109 thou/uL (152-406); RBC Red Blood Cell Count 3.02 M/uL (3.86-4.86); Red Cell Distribution Width 25.2 % (12.1-15.2)
[2024-07-22 07:25] LABS: AST/SGOT 24 U/L (15-37); Albumin 2.5 g/dL (3.4-5.0); Albumin/Globulin Ratio 0.9 (1.1-1.8); Alkaline Phosphatase 77 U/L (45-117); Anion Gap 6.4 mEq/L (5.0-15.0); BUN Blood Urea Nitrogen 22 mg/dL (7-18); Bicarbonate 36 mEq/L (21-32); Bilirubin Total 0.5 mg/dL (0.2-1.0); Globulin 2.9 g/dL (2.3-3.5); Glomerular Filtration Rate 85 ml/min (=/>90); Glucose Level 94 mg/dL (74-106); Potassium 3.4 mEq/L (3.5-5.1); Protein, Total 5.4 g/dL (6.4-8.2); Sodium Level 141 mEq/L (136-145)
[2024-07-22 07:27] LABS: ALT/SGPT < 14 U/L (13-56)
[2024-07-22] MEDS: FUROSEMIDE 40 MG TABLET PO SCH (08:59)
[2024-07-22 09:31] LABS: Atypical Lymphocytes 6 %; Differential Total Cells Count 100; Eosinophils 2 % (0-3); Lymphocytes 14 % (15-42); Monocytes 21 % (0-10); Nucleated Red Blood Cells 1 /100WBC; Segmented Neutrophils 57 % (40-80)
[2024-07-22 09:32] LABS: Anisocytosis 2+; Blood Morphology Comment NOTED (NOT SEEN); Hypochromasia 1+; Microcytosis 1+; Platelet Estimate ADEQ; Platelets, Giant FEW; Poikilocytosis 1+; Polychromasia SLIGHT
--- NOTE | 2024-07-22 14:31 | P.PN ---
Subjective Date of Service: 07/22/24 Primary Care Provider: Sandoval Chief Complaint: CHF exacerbation total diuresis of 3000ml since admission Review of Systems 10-point ROS is otherwise unremarkable Physical Examination - Vital Signs Temperature: 97.7 F Blood Pressure: 118/71 Pulse: 107 Respirations: 15 Pulse Ox (%): 96 - Physical Exam General: Alert, In no apparent distress HEENT: Atraumatic, PERRLA, EOMI Neck: Supple, JVD not distended Respiratory: Clear to auscultation bilaterally, Normal air movement Cardiovascular: Regular rate/rhythm, Normal S1 S2 Gastrointestinal: Normal bowel sounds, No tenderness Musculoskeletal: No tenderness Integumentary: No rashes Neurological: Normal speech, Normal tone, Normal affect Lymphatics: No axilla or inguinal lymphadenopathy Assessment And Plan - Current Problems (Diagnosis) (1) CHF exacerbation Current Visit: No Status: Acute Plan: continue lasix. will have her seen by Dr. Lara. We may consider increasing the entresto. Will try having a family meeting about having about possible GI work. 07.22 Patient still has edema. Will continue diuresis. She is a high risk of bouncing back Qualifiers: Heart failure type: diastolic Qualified Code(s): I50.33 - Acute on chronic diastolic (congestive) heart failure (2) Atrial fibrillation Current Visit: No Status: Acute Qualifiers: Atrial fibrillation type: unspecified chronic Qualified Code(s): I48.20 - Chronic atrial fibrillation, unspecified; I48.2 - Chronic atrial fibrillation (3) Anemia Current Visit: No Status: Chronic Plan: Most likely a GI bleed. She is better after the transfusion. Hopefully this w ill improve her volume status. Will continue monitoring her hb Qualifiers: Anemia type: iron deficiency Iron deficiency anemia type: chronic blood loss Qualified Code(s): D50.0 - Iron deficiency anemia secondary to blood loss (chronic) (4) Dementia Current Visit: No Status: Chronic Plan: stable on namenda Qualifiers: Dementia type: unspecified type Dementia severity: moderate Dementia behavioral or psychological symptom: with anxiety Qualified Code(s): F03.B4 - Unspecified dementia, moderate, with anxiety (5) Essential (primary) hypertension Current Visit: No Status: Chronic Plan: stable on entresto. Discharge Plan: Home Plan to discharge in: 24 Hours Physician Review: Patient Assessed, Agree with Above Assessment and Plan Critical Care: No Time Spent Managing PTS Care (In Minutes): 20
--- NOTE | 2024-07-22 21:21 | PN ---
Subjective: Seen by the bedside. Breathing is stable, but she has massive lower extremity edema. D enies having any chest pain. No nausea, vomiting, diarrhea. No abdominal pain. No dysuria, polyuri a, or urinary urgency. All other systems reviewed and are negative. Physical Examination: Vital Signs: Reviewed. Head and Neck: Pupils are equal and reactive to light. Intact eye movements. No JVD. No cervical lymphadenopathy. Neck is supple. Thyroid is not enlarged. Lungs: Clear to auscultation bilaterally. No rhonchi, rales, or crackles. No accessory muscle use. Heart: Irregularly irregular, in atrial fibrillation. No extra sounds. Abdomen: Soft, nontender. Bowel sounds positive. No organomegaly. No masses or hernia. No rigidi ty or rebound. Extremities: 4+ edema bilaterally. No clubbing or cyanosis. Intact pulses. Skin: No rash. Neurologic: Alert, awake, oriented x3. No acute focal deficits appreciated. Lymph Nodes: No cervical or axillary lymphadenopathy. Investigations: BUN is 16, creatinine 0.72. Troponin is negative. Hemoglobin is 8.6. Assessment And Recommendation: 1.Acute on chronic diastolic heart failure exacerbation with massive edema. Agree with Lasix. Care fully monitor BUN, creatinine, electrolytes. Replace potassium if need be. Low-salt diet and contin ue with blood pressure control. 2.Hypertension. Blood pressure is on the low side. Carefully monitor the diuretics given the fact that the blood pressure is on the low side. 3.Atrial fibrillation. The heart rate is borderline elevated. I recommend a trial to convert to si nus rhythm during this hospital stay and as such I recommend to start sotalol 80 mg twice a day if bl ood pressure allows. If not, then I will load her with amiodarone overnight 150 mg over 10 minutes, and then 1 mg/minute for 6 hours, and then 0.5 mg/minute for 16 hours. Start her on anticoagulant wi th Eliquis; however, I would increase the dose to 5 mg twice a day if her creatinine is normal and pl an for JANESSA-guided cardioversion. This will help her congestive heart failure exacerbation. 4.Dyslipidemia, on rosuvastatin. Continue current management. SR/MODL Voice ID: [id number] Report ID: [id number]
[2024-07-23 06:28] LABS: Absolute Eosinophils 0.2 K/uL (0-0.5); Absolute Lymphocytes (CBC) 0.8 K/uL (0.7-4.9); Absolute Monocytes 2.4 K/uL (0.1-1.3); Basophils % 0.6 % (0-1.3); Hematocrit 26.7 % (36.0-45.0); Hemoglobin 8.2 g/dL (12.0-15.0); Lymphocytes % 10.9 % (15.3-44.8); MCH 27.5 pg (27.0-35.0); MCHC 30.6 g/dL (32.0-36.0); MCV 89.9 fL (80-100); MPV 8.5 fL (7.6-11.3); Monocytes % 32.7 % (3.3-12.3); Neutrophils % 53.8 % (41.7-73.7); Platelets 113 thou/uL (152-406); RBC Red Blood Cell Count 2.97 M/uL (3.86-4.86); Red Cell Distribution Width 24.4 % (12.1-15.2)
[2024-07-23 06:42] LABS: AST/SGOT 23 U/L (15-37); Albumin 2.6 g/dL (3.4-5.0); Albumin/Globulin Ratio 0.8 (1.1-1.8); Alkaline Phosphatase 85 U/L (45-117); Anion Gap 5.4 mEq/L (5.0-15.0); BUN Blood Urea Nitrogen 24 mg/dL (7-18); Bicarbonate 37 mEq/L (21-32); Bilirubin Total 0.4 mg/dL (0.2-1.0); Globulin 3.1 g/dL (2.3-3.5); Glomerular Filtration Rate 79 ml/min (=/>90); Glucose Level 99 mg/dL (74-106); Potassium 3.4 mEq/L (3.5-5.1); Protein, Total 5.7 g/dL (6.4-8.2); Sodium Level 141 mEq/L (136-145)
[2024-07-23 06:44] LABS: ALT/SGPT < 14 U/L (13-56)
--- NOTE | 2024-07-23 13:53 | P.PN ---
Subjective Date of Service: 07/23/24 Primary Care Provider: Sandoval Chief Complaint: CHF exacerbation total diuresis of 3000ml since admission Review of Systems 10-point ROS is otherwise unremarkable Physical Examination - Vital Signs Temperature: 98.3 F Blood Pressure: 103/54 Pulse: 92 Respirations: 14 Pulse Ox (%): 90 - Physical Exam General: Alert, In no apparent distress HEENT: Atraumatic, PERRLA, EOMI Neck: Supple, JVD not distended Respiratory: Clear to auscultation bilaterally, Normal air movement Cardiovascular: Regular rate/rhythm, Normal S1 S2 Gastrointestinal: Normal bowel sounds, No tenderness Musculoskeletal: No tenderness Integumentary: No rashes Neurological: Normal speech, Normal tone, Normal affect Lymphatics: No axilla or inguinal lymphadenopathy Assessment And Plan - Current Problems (Diagnosis) (1) CHF exacerbation Current Visit: No Status: Acute Plan: continue lasix. will have her seen by Dr. Lara. We may consider increasing the entresto. Will try having a family meeting about having about possible GI work. 10.19 Patient still has edema. Will continue diuresis. She is a high risk of bouncing back Qualifiers: Heart failure type: diastolic Qualified Code(s): I50.33 - Acute on chronic diastolic (congestive) heart failure (2) Atrial fibrillation Current Visit: No Status: Acute Qualifiers: Atrial fibrillation type: unspecified chronic Qualified Code(s): I48.20 - Chronic atrial fibrillation, unspecified; I48.2 - Chronic atrial fibrillation (3) Anemia Current Visit: No Status: Chronic Plan: Most likely a GI bleed. She is better after the transfusion. Hopefully this will improve her volume status. Will continue monitoring her hb Qualifiers: Anemia type: iron deficiency Iron deficiency anemia type: chronic blood loss Qualified Code(s): D50.0 - Iron deficiency anemia secondary to blood loss (chronic) (4) Dementia Current Visit: No Status: Chronic Plan: stable on namenda Qualifiers: Dementia type: unspecified type Dementia severity: moderate Dementia behavioral or psychological symptom: with anxiety Qualified Code(s): F03.B4 - Unspecified dementia, moderate, with anxiety (5) Essential (primary) hypertension Current Visit: No Status: Chronic Plan: stable on entresto. Discharge Plan: Home Plan to discharge in: 24 Hours - Code Status/Comfort Care Code Status Assessed: No Physician Review: Patient Assessed, Agree with Above Assessment and Plan Critical Care: No Time Spent Managing PTS Care (In Minutes): 20
[2024-07-23] MEDS: ZOLPIDEM TARTRATE 5 MG TABLET PO ONE (22:23)
[2024-07-24 08:36] LABS: AST/SGOT 23 U/L (15-37); Albumin 2.8 g/dL (3.4-5.0); Albumin/Globulin Ratio 0.8 (1.1-1.8); Alkaline Phosphatase 92 U/L (45-117); BUN Blood Urea Nitrogen 21 mg/dL (7-18); Bicarbonate 36 mEq/L (21-32); Bilirubin Total 0.5 mg/dL (0.2-1.0); Globulin 3.3 g/dL (2.3-3.5); Glomerular Filtration Rate 87 ml/min (=/>90); Glucose Level 99 mg/dL (74-106); Protein, Total 6.1 g/dL (6.4-8.2); Sodium Level 140 mEq/L (136-145)
[2024-07-24 08:37] LABS: ALT/SGPT < 14 U/L (13-56)
[2024-07-24] MEDS: SPIRONOLACTONE 25 MG TABLET PO SCH (08:56)
[2024-07-24 10:26] LABS: Absolute Eosinophils 0.1 K/uL (0-0.5); Absolute Lymphocytes (CBC) 0.5 K/uL (0.7-4.9); Absolute Monocytes 1.7 K/uL (0.1-1.3); Basophils % 0.5 % (0-1.3); Hematocrit 30.4 % (36.0-45.0); Lymphocytes % 9.7 % (15.3-44.8); MCH 27.1 pg (27.0-35.0); MCHC 29.8 g/dL (32.0-36.0); MCV 90.9 fL (80-100); MPV 8.4 fL (7.6-11.3); Monocytes % 31.2 % (3.3-12.3); Neutrophils % 56.6 % (41.7-73.7); Nucleated Red Blood Cells % 0.1 % (0-0); Platelets 139 thou/uL (152-406); RBC Red Blood Cell Count 3.34 M/uL (3.86-4.86); Red Cell Distribution Width 24.4 % (12.1-15.2)
--- NOTE | 2024-07-24 11:55 | P.PN ---
Subjective Date of Service: 07/24/24 Primary Care Provider: Sandoval Chief Complaint: CHF exacerbation Subjective: No new changes Review of Systems 10-point ROS is otherwise unremarkable Physical Examination - Vital Signs Temperature: 96.7 F Blood Pressure: 135/70 Pulse: 76 Respirations: 18 Pulse Ox (%): 98 - Physical Exam General: Alert, In no apparent distress HEENT: Atraumatic, PERRLA, EOMI Neck: Supple, JVD not distended Respiratory: Clear to auscultation bilaterally, Normal air movement Cardiovascular: Edema (+2 bilateral lower extremities), Irregular heart rate/rhythm Gastrointestinal: Normal bowel sounds, No tenderness Musculoskeletal: No tenderness Integumentary: No rashes Neurological: Normal speech, Normal tone, Normal affect Lymphatics: No axilla or inguinal lymphadenopathy - Studies Medications List Reviewed: Yes Assessment And Plan - Current Problems (Diagnosis) (1) Acute on chronic diastolic heart failure Current Visit: Yes Status: Acute Plan: Patient is NYHA III, Class B, she got +2 edema to bilateral lower extremities Increase Lasix to 40 mg IV q 8 hours continue Coreg 3.125 mg o BID continue Entresto 24/27 mg po BID continue Aldactone 25 mg daily Monitor input and output and electrolytes. (2) Atrial fibrillation Current Visit: No Status: Acute Plan: Continue Coreg 3.125 mg po BID Continue Eliquis 2.5 mg po BID monitor H&H Qualifiers: Atrial fibrillation type: unspecified chronic Qualified Code(s): I48.20 - Chronic atrial fibrillation, unspecified; I48.2 - Chronic atrial fibrillation (3) Essential (primary) hypertension Current Visit: No Status: Chronic Plan: Continue medications as above. Physician Review: Patient Assessed, Agree with Above Assessment and Plan
--- NOTE | 2024-07-24 12:28 | P.PN ---
Subjective Date of Service: 07/24/24 Primary Care Provider: Sandoval Chief Complaint: CHF exacerbation patient had some better diuresis yesterday However still swollen Review of Systems 10-point ROS is otherwise unremarkable Physical Examination - Vital Signs Temperature: 97.8 F Blood Pressure: 139/63 Pulse: 100 Respirations: 16 Pulse Ox (%): 100 - Physical Exam General: Alert, In no apparent distress HEENT: Atraumatic, PERRLA, EOMI Neck: Supple, JVD not distended Respiratory: Clear to auscultation bilaterally, Normal air movement Cardiovascular: Regular rate/rhythm, Normal S1 S2, Edema (1+) Gastrointestinal: Normal bowel sounds, No tenderness Musculoskeletal: No tenderness Integumentary: No rashes Neurological: Normal speech, Normal tone, Normal affect Lymphatics: No axilla or inguinal lymphadenopathy - Studies Medications List Reviewed: Yes Assessment And Plan - Current Problems (Diagnosis) (1) CHF exacerbation Current Visit: No Status: Acute Plan: continue lasix. will have her seen by Dr. Lara. We may consider increasing the entresto. Will try having a family meeting about having about possible GI work. . Patient improving. However she still has significant edema. The patient is in [facility] assisted [facility] facility She has been swollen within a week of discharge. She has been in this hospital twice in the last 2 months. Then she is swollen in [facility] and comes back in a few weeks. Would like to get some better diuresis before discharge. Then see if she is not so quick to bounce back. Anemic and CHF exacerbation. Family does not want any EGD for the anemia work up. Qualifiers: Heart failure type: diastolic Qualified Code(s): I50.33 - Acute on chronic diastolic (congestive) heart failure (2) Atrial fibrillation Current Visit: No Status: Acute Qualifiers: Atrial fibrillation type: unspecified chronic Qualified Code(s): I48.20 - Chronic atrial fibrillation, unspecified; I48.2 - Chronic atrial fibrillation (3) Anemia Current Visit: No Status: Chronic Plan: Most likely a GI bleed. She is better after the transfusion. Hopefully this will improve her volume status. Will continue monitoring her hb Qualifiers: Anemia type: iron deficiency Iron deficiency anemia type: chronic blood loss Qualified Code(s): D50.0 - Iron deficiency anemia secondary to blood loss (chronic) (4) Dementia Current Visit: No Status: Chronic Plan: stable on namenda Qualifiers: Dementia type: unspecified type Dementia severity: moderate Dementia behavioral or psychological symptom: with anxiety Qualified Code(s): F03.B4 - Unspecified dementia, moderate, with anxiety (5) Essential (primary) hypertension Current Visit: No Status: Chronic Plan: stable on entresto. Discharge Plan: Home Plan to discharge in: 24 Hours - Code Status/Comfort Care Code Status Assessed: No Physician Review: Patient Assessed, Agree with Above Assessment and Plan Critical Care: No Time Spent Managing PTS Care (In Minutes): 30
[2024-07-24] MEDS: FUROSEMIDE 40 MG/4 ML VIAL IV SCH (17:29)
[2024-07-25 08:15] VITALS: TEMP 97.9
[2024-07-25 08:30] VITALS: O2SAT 93
--- NOTE | 2024-07-25 10:40 | P.DS ---
Admission Date: 07/19/24 Discharge Date: 07/25/24 Primary Care Provider: Sandoval Disposition: ROUTINE DISCHARGE Discharge Condition: GOOD Reason for Admission: CHF exacerbation - Problems (1) CHF exacerbation Current Visit: No Status: Acute Qualifiers: Heart failure type: diastolic Qualified Code(s): I50.33 - Acute on chronic diastolic (congestive) heart failure (2) Atrial fibrillation Current Visit: No Status: Acute Qualifiers: Atrial fibrillation type: unspecified chronic Qualified Code(s): I48.20 - Chronic atrial fibrillation, unspecified; I48.2 - Chronic atrial fibrillation (3) Anemia Current Visit: No Status: Chronic Qualifiers: Anemia type: iron deficiency Iron deficiency anemia type: chronic blood loss Qualified Code(s): D50.0 - Iron deficiency anemia secondary to blood loss (chronic) (4) Dementia Current Visit: No Status: Chronic Qualifiers: Dementia type: unspecified type Dementia severity: moderate Dementia behavioral or psychological symptom: with anxiety Qualified Code(s): F03.B4 - Unspecified dementia, moderate, with anxiety (5) Essential (primary) hypertension Current Visit: No Status: Chronic Brief History of Present Illness: Patient of mine living in [facility] assisted living facilities. She has a history of copd, chf, dementia. She is difficult to control fluid status for the chf. She was on increased dosages of furosemide and low dose entresto. However she had worsening pedal edema and was sent to the ER. She was here last month and an echo showed diastolic dysfunction. She also had anemia at the time. She was given a unit of blood in the ER. The family does not want any egd/colonoscopy. She has improved on protonix and oral iron. She is awake and in good spirits this morning. Able to sit up feed herself. Hospital Course: Patient was admitted and diuresis. She is doing well. The patient will be sent back to [facility] today. Have a discussion with [facility] nurse Tre Vasquez She suggested hospice As the son does not want to do any work up for the anemia. We may consider this. Will try discussing this with the son. Vital Signs/Physical Exam: Temp Pulse Resp BP Pulse Ox 97.9 F 89 18 110/57 L 93 07/25/24 08:00 07/25/24 08:00 07/25/24 08:00 07/25/24 08:00 07/25/24 08:00 General: Alert, In no apparent distress HEENT: Atraumatic, PERRLA, EOMI Neck: Supple, JVD not distended Respiratory: Clear to auscultation bilaterally, Normal air movement Cardiovascular: Regular rate/rhythm, Normal S1 S2 Gastrointestinal: Normal bowel sounds, No tenderness Musculoskeletal: No tenderness Integumentary: No rashes Neurological: Normal speech, Normal tone, Normal affect Lymphatics: No axilla or inguinal lymphadenopathy Laboratory Data at Discharge: WBC 5.30 thou/uL (4.3-10.9) 07/24/24 10:04 Hgb 9.0 g/dL (12.0-15.0) L D 07/24/24 10:04 Hct 30.4 % (36.0-45.0) L 07/24/24 10:04 Plt Count 139 thou/uL (152-406) L 07/24/24 10:04 PT 16.1 SECONDS (9.4-12.5) H 07/19/24 19:20 INR 1.45 07/19/24 19:20 Sodium 140 mEq/L (136-145) 07/24/24 07:46 Potassium 3.0 mEq/L (3.5-5.1) L 07/24/24 07:46 BUN 21 mg/dL (7-18) H 07/24/24 07:46 Creatinine 0.67 mg/dL (0.55-1.02) 07/24/24 07:46 Glucose 99 mg/dL (74-106) 07/24/24 07:46 Magnesium 2.2 mg/dL (1.6-2.4) 07/19/24 19:20 Total Bilirubin 0.5 mg/dL (0.2-1.0) 07/24/24 07:46 AST 23 U/L (15-37) 07/24/24 07:46 ALT < 14 U/L (13-56) 07/24/24 07:46 Alkaline Phosphatase 92 U/L (45-117) 07/24/24 07:46 Lipase 46 U/L (13-75) 07/19/24 19:20 Home Medications: Apixaban [Eliquis *] 2.5 mg PO BID 06/14/24 Fluticasone Propion/Salmeterol [Fluticasone-Salmeterol 250-50] 1 puff IH Q12H 06/14/24 Melatonin 10 mg SL BEDTIME 06/14/24 Memantine HCl [Memantine HCl ER] 7 mg PO DAILY 06/14/24 Potassium Chloride 20 mg PO DAILY 06/14/24 Rosuvastatin Calcium 5 mg PO BEDTIME 06/14/24 Sacubitril/Valsartan [Entresto 24 mg-26 mg Tablet] 1 tab PO BID 06/14/24 cloNIDine [Clonidine] 0.1 mg TOP SEECOM 06/14/24 Ferrous Gluconate 324 mg PO DAILY 90 Days #90 tab 06/16/24 Pantoprazole Sodium [Protonix] 40 mg PO DAILY 90 Days #90 tab 06/16/24 Potassium Chloride 20 meq PO DAILY 90 Days #90 tab 06/16/24 Acetaminophen 2 tab PO PRN PRN 07/20/24 Albuterol Inhaler [Ventolin Inhaler*] 2 puff IH PRN PRN 07/20/24 Sertraline [Zoloft*] 25 mg PO DAILY 07/20/24 Tramadol HCl [Ultram] 1 tab PO PRN PRN 07/20/24 Diet: Regular Activity: Ad dino Followup: NONE,NONE [Primary Care Provider] - Willem Nick MD [ACTIVE - CAN ADMIT] - Time spent managing pt's care (in minutes): 20
[2024-07-25 12:32] VITALS: BP 152/73
--- NOTE | 2024-07-25 13:12 | EKG ---
Test Date: 2024-07-19 Test Time: 19:10:46 [employer] Sander Tender: ROSE MEASUREMENT RESULTS: Intervals: Rate: 120 VA: QRSD: 82 QT: 350 QTc: 494 [place]: P: VA: QRS: 53 T: 52 INTERPRETIVE STATEMENTS: Atrial fibrillation with premature ventricular or aberrantly conducted complexes Nonspecific ST abnormality, probably digitalis effect Abnormal ECG Compared to ECG 07/04/2024 01:47:53 ST (T wave) deviation now present Electronically Signed On 07-25-24 12:56:[address]
== END 2024-07-25 14:57 | disposition home or self-care (01) | DRG 291 ==
LOC: ER 18:44 → ERHOLD 20:49 → 3RD-ICU 22:09 → 2ND 07-20 22:45
PROVIDERS: ADMIT Internal Medicine; ATTEND Internal Medicine
PROC: 30233N1 Transfusion of Nonautologous Red Blood Cells into Peripheral Vein, Percutaneous Approach (ICD-10-PCS; principal; 2024-07-19)
DX: I11.0 Hypertensive heart disease with heart failure (principal); I50.33 Acute on chronic diastolic (congestive) heart failure; I48.20 Chronic atrial fibrillation, unspecified; F03.B4 Unspecified dementia, moderate, with anxiety; E78.5 Hyperlipidemia, unspecified; D50.0 Iron deficiency anemia secondary to blood loss (chronic); E78.00 Pure hypercholesterolemia, unspecified; J44.9 Chronic obstructive pulmonary disease, unspecified; Z79.82 Long term (current) use of aspirin; Z79.01 Long term (current) use of anticoagulants; Z79.02 Long term (current) use of antithrombotics/antiplatelets; Z79.899 Other long term (current) drug therapy; Z87.891 Personal history of nicotine dependence; Z90.710 Acquired absence of both cervix and uterus
CPT/HCPCS: 36415; 36430; 71045; 80048; 80053; 80076; 81003; 83690; 83735; 83880; 84484; 85014; 85018; 85025; 85610; 86850; 86900; 86901; 86920; 93005; 96374; 96375; 97110; 97161; 97530; 99285; J1160; J1940; J2270; J7040; P9016